=== PATIENT | male | born 2000 | race Caucasian/White ===

== ENCOUNTER 2020-01-16 14:24 | Emergency (ER) | payer OTHER, SELFPAY ==
--- NOTE | 2020-01-16 15:06 | XR_ITS ---
EXAMINATION: XR CHEST CLINICAL INFORMATION: Shortness of breath COMPARISON: None TECHNIQUE: 2 views of the chest were obtained. FINDINGS: No significant abnormality is noted involving the heart, lungs, mediastinum, bony thorax or soft tissues. XR/XR chest 2V IMPRESSION: Unremarkable examination.
[2020-01-16 15:17] VITALS: BP 117/80; PULSE 62; RESP 18; TEMP 37.2; O2SAT 99; BMI 46.9
--- NOTE | 2020-01-16 15:38 | ED_ITS ---
HPI - General Adult General Chief complaint: General Medical Stated complaint: SOB Time Seen by Provider: 01/16/20 15:05 History of Present Illness HPI narrative: Patient complains of shortness of breath over many months which is worse with mild exertion, he does not have any chest pain he does not have any cough no fever he has had no leg pain no swelling, he never feels faint or dizzy, he attributes his mild shortness of breath with exertion 2 years of smoking which he started when he was 9 years old This is been going on for many months and has no recent changes Related Data Allergies Allergy/AdvReac Type Severity Reaction Status Date / Time No Known Allergies Allergy Verified 01/16/20 15:06 Review of Systems Review of Systems: Review of systems is positive for shortness of breath with exertion but not at rest There is no chest pain no nausea no vomiting no pleuritic pain no chest pain at rest no dizziness no feeling of faintness, no fainting no headache no rash no leg pain no calf pain no leg swelling [facility] Past Medical History Attestation statement: The following information was validated with the patient. [facility] Narrative: No medical problems, the patient has been smoking cigarettes since he was 9 years old with a 10 year smoking history Source: nursing notes reviewed Medical History (Updated 01/16/20 @ 16:29 by EILEEN Sullivan) No known health problems Social History Social History Smoking Status: Current every day smoker Smoked in Last 30 Days: No Substance Use Type: Marijuana Advance Directives: No Advance Directives Information Provided: No Physical Exam Vital Signs: Vital Signs: Last Vital Signs Temp 98.9 F 01/16/20 15:17 Pulse 62 01/16/20 15:17 Resp 18 01/16/20 15:17 BP 117/80 01/16/20 15:17 Pulse Ox 99 01/16/20 15:17 Body Mass Index 46.9 Patient is comfortable appearing, no acute distress, breathing easily speaking full sentences relaxed and cooperative Head is normocephalic atraumatic Pharynx clear well-hydrated Neck is supple Min chest is nontender and clear to auscultation bilaterally with full symmetric equal breath sounds Heart no murmurs Abdomen nontender Extremities no edema, no calf tenderness Neuro no focal deficit Course Course Course Narrative: Chest x-ray was normal EKG was sinus bradycardia with a sinus arrhythmia at a rate of 52 CT was 174, normal QRS was 86, normal QT was normal No evidence of any acute ischemic change Perc score was 0 I agreed with patient most likely his many months of shortness of breath with activity is related to smoking and deconditioning, patient was advised to stop smoking, follow with primary care physician and was discharged home Discharge Plan Discharge Clinical Impression: Breath shortness Patient Disposition: Home, Self-Care Additional Instructions: Your EKG and chest x-ray did not show any dangerous condition Your vital signs were normal and her lung sounds were clear as was the rest of her physical exam Try to quit smoking as this can often decreased exercise tolerance Follow with primary doctor Return to ER any time for any worsening shortness of breath, chest pain, fainting, any worse condition or any concerns Interventions: ED Discharge Assessment Last Done: 01/16/20 16:37 Discharge Date/Time: 01/16/20 16:38
--- NOTE | 2020-01-16 15:39 | ECG_ITS ---
Test Reason : SOB Blood Pressure : / mmHG Vent. Rate : 052 BPM Atrial Rate : 052 BPM P-R Int : 174 ms QRS Dur : 086 ms QT Int : 412 ms P-R-T Axes : 061 058 038 degrees QTc Int : 383 ms Sinus bradycardia with marked sinus arrhythmia Early repolarization RSR' or QR pattern in V1 suggests right ventricular conduction delay Otherwise normal ECG No previous ECGs available Referred By: Nabeel Joshi Electronically Signed By:LATOYA MATTA MD
== END 2020-01-16 16:38 | disposition home or self-care (01) ==
PROVIDERS: Emergency Provider Emergency Medicine
DX: R06.02 Shortness of breath (principal); F17.200 Nicotine dependence, unspecified, uncomplicated; Z71.6 Tobacco abuse counseling; F12.90 Cannabis use, unspecified, uncomplicated
CPT/HCPCS: 71046; 93005; 99283; 99284

== ENCOUNTER 2020-07-07 06:31 | Emergency (ER) | payer OTHER, SELFPAY ==
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
[2020-07-07 06:41] VITALS: RESP 24; BMI 20.9
[2020-07-07 06:43] VITALS: BP 120/82; PULSE 90
== END 2020-07-07 07:36 ==
PROVIDERS: Emergency Provider Emergency Medicine
DX: F10.920 Alcohol use, unspecified with intoxication, uncomplicated (principal); Y90.9 Presence of alcohol in blood, level not specified; R45.1 Restlessness and agitation; S51.812A Laceration without foreign body of left forearm, initial encounter; Y35.93XA Legal intervention, means unspecified, suspect injured, initial encounter; Y93.9 Activity, unspecified; Y92.9 Unspecified place or not applicable; Y99.9 Unspecified external cause status; F17.200 Nicotine dependence, unspecified, uncomplicated; F12.90 Cannabis use, unspecified, uncomplicated
CPT/HCPCS: 99282; 99283

== ENCOUNTER 2020-07-07 09:10 | Emergency (ER) | payer OTHER, SELFPAY ==
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
[2020-07-07 09:25] VITALS: BP 133/71; PULSE 78; RESP 18; TEMP 36.6; O2SAT 98; BMI 19.0
--- NOTE | 2020-07-07 09:50 | PC.NURSE ---
pt continues to be verbally abusive and loud, security has not left the bedside, mult attempts to redirect unsuccessful, contacted the father and he will be coming to the ed
[2020-07-07] MEDS: Haloperidol Lactate 5 MG/ML VIAL IM (10:01)
[2020-07-07] MEDS: LORazepam 2 MG/ML VIAL IM (10:03)
[2020-07-07] MEDS: Ketamine HCl 500 MG/5 ML VIAL 100 MG IM (10:27)
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
--- NOTE | 2020-07-07 13:17 | PC.NURSE ---
sr on monitor, nad, skin wpd, resp even and unlabored, has been sleeping for 30 min, woken w light touch and verbal stim, father agreeable top take home, pt calm and cooperative, inst reviewed
== END 2020-07-07 13:21 | disposition home or self-care (01) ==
PROVIDERS: Emergency Provider Emergency Medicine
DX: F14.10 Cocaine abuse, uncomplicated (principal); F11.10 Opioid abuse, uncomplicated; F10.10 Alcohol abuse, uncomplicated; Y90.9 Presence of alcohol in blood, level not specified; R45.1 Restlessness and agitation; Z78.1 Physical restraint status
CPT/HCPCS: 96372; 99283; 99284; 99285; J2060

== ENCOUNTER 2022-03-08 16:51 | Observation (INO) | payer OTHER, SELFPAY ==
--- NOTE | 2022-03-08 | ECG_ITS ---
Test Reason : REPEAT Blood Pressure : / mmHG Vent. Rate : 045 BPM Atrial Rate : 045 BPM P-R Int : 180 ms QRS Dur : 084 ms QT Int : 486 ms P-R-T Axes : 067 062 040 degrees QTc Int : 420 ms Sinus bradycardia Early repolarization Otherwise normal ECG When compared with ECG of 08-MAR-2022 20:27, No significant change was found Referred By: Lilia Johansen Electronically Signed By:ELODIA NATARAJAN
--- NOTE | ~2022-03-08 | XR_ITS ---
EXAMINATION: XR CHEST CLINICAL INFORMATION: Evaluate for edema. Overdose. COMPARISON: 01/16/2020. TECHNIQUE: Frontal view of the chest was obtained. FINDINGS: No significant abnormality is noted involving the heart, lungs, mediastinum, bony thorax or soft tissues. XR/XR chest 1V IMPRESSION: Unremarkable examination.
--- NOTE | 2022-03-08 05:00 | ECG_ITS ---
Test Reason : overdose Blood Pressure : / mmHG Vent. Rate : 039 BPM Atrial Rate : 039 BPM P-R Int : 194 ms QRS Dur : 098 ms QT Int : 530 ms P-R-T Axes : 063 065 047 degrees QTc Int : 426 ms Marked sinus bradycardia with sinus arrhythmia ST elevation, consider early repolarization Abnormal ECG When compared with ECG of 16-JAN-2020 16:11, No significant change was found Referred By: Khurram Delgado Electronically Signed By:ELODIA NATARAJAN
[2022-03-08 17:16] VITALS: PULSE 52; RESP 14; TEMP 37.6; O2SAT 98; BMI 23.6
--- NOTE | 2022-03-08 17:22 | PC.NURSE ---
Patient presents to ED with report of overdose received narcan in the field with good effect no respiratory distress noted, patient is sleepy but is easily aroused neuros intact. Admits to heroin percocent and hydroxyzine use refusing IV will CTM
--- NOTE | 2022-03-08 17:37 | MHC.EDTECH ---
Patient refused to do lab work and covid swab. Stated I would rather just go home .
--- NOTE | 2022-03-08 17:40 | PC.NURSE ---
Patient refusing labs provider aware will CTM
--- NOTE | 2022-03-08 18:09 | PC.NURSE ---
Visitor at bedside easily aroused will CTM
--- NOTE | 2022-03-08 18:29 | ED.OVERDOSE ---
HPI - Overdose General Chief Complaint: Overdose Stated Complaint: Heroin overdoes per EMS Time Seen by Provider: 03/08/22 17:25 Source: patient and EMS Mode of arrival: EMS Limitations: other (Not cooperative) History of Present Illness HPI Narrative: 21-year-old male reports no past medical history presents to the emergency department with an overdose, patient tells me he used heroin, took Percocets and took his prescribed hydroxyzine just prior to arrival. He arrives alert and oriented x4. He received 6 mg of Narcan prior to arrival by EMS. He refused vitals for EMS and was not cooperative. Arrives here, refusing to answer questions, poor historian. Alert and oriented x4 however. Tells us he does not need any of this. Requesting to leave. Not SI not HI. He tells me he just did this ?to get lit . Denies medical complaints. Doesnt want a SUDE. Related Data Previous Rx's Medication Instructions Recorded naloxone 4 mg/actuation nasal 4 mg intranasal Q2M PRN opioid 03/08/22 spray (Narcan) overdose #2 ea Allergies Allergy/AdvReac Type Severity Reaction Status Date / Time No Known Allergies Allergy Verified 01/16/20 15:06 Review of Systems Review of Systems: Constitutional : No Weight loss, No Fever, No Chills, No Fatigue, No Malaise ENT/Mouth : No sore throat, No Rhinorrhea Eyes: No Eye Pain, No Swelling, No Redness Cardiovascular : No Chest Pain, No SOB, No Dyspnea on Exertion, No Orthopnea, No Edema, No Palpitations Respiratory : No Cough, No Sputum, No Wheezing Gastrointestinal : No Nausea, No Vomiting, No Diarrhea, No Constipation, No abdominal Pain, No Hematochezia, No Melena Genitourinary : No Dysuria, No Urinary Frequency, No Hematuria, Musculoskeletal : No joint pain, No Myalgias, No Joint Swelling Skin : No Skin Lesions, No rash Neuro : No Weakness, No Numbness, No Dizziness, No Headache Psych : No Anxiety/Panic, No Depression All other systems reviewed and are negative Yes all other systems are reviewed and are negative [facility] Past Medical History Attestation statement: The following information was validated with the patient. Source: old records reviewed and nursing notes reviewed Medical History Anxiety No known health problems Social History Social History Alcohol intake: current Alcohol intake frequency: a few times a week Substance Use Type: Marijuana Advance Directives: No Advance Directives Information Provided: No Physical Exam Vital Signs: Vital Signs: Last Vital Signs Temp 99.6 F 03/08/22 17:16 Pulse 52 03/08/22 17:16 Resp 14 03/08/22 17:16 BP 106/64 03/08/22 19:12 Pulse Ox 98 03/08/22 17:16 O2 Del Method 03/08/22 17:16 BMI result Body Mass Index 23.6 vss Appearance: Alert.? Oriented X3.? No acute distress.? Head: Normocephalic, atraumatic, no step-offs or deformities Eyes: Pupils equal, round and reactive to light.? ENT: Pharynx normal.? Neck: Normal inspection.? Neck supple.? CVS: Normal heart rate and rhythm.? Pulses normal.? Respiratory: No respiratory distress.? Breath sounds normal.? Abdomen: Soft and nontender.? Skin: Skin warm and dry.? Normal skin color.? Normal skin turgor.? Extremities: No lower extremity edema.? No calf ttp. 5/5 strength to bilateral upper and lower extremities Neuro: Oriented X 3.? No motor deficit.? No sensory deficit. CN 2-12 intact . Ambulating with steady gait normal coordination. Course Reevaluation(s) Reevaluation #1: I did speak to patient and patient now telling me that he had Klonopin 3.5 mg, some synthetic Percocets 2.5 tabs, heroin unknown how much, and 150 mg of Atarax. Denies SI and HI. Poison control was called as patient's heart rate is 37-38, they recommend keeping patient's potassium at 4, magnesium around to the recommend monitoring the patient overnight and keeping him on telemetry. In the would like patient's QTC to be less than 500 prior to discharge. Patient was agreeable to labs laboratory studies pending at this time His heart rate noted to be 34-40s poison control aware. Time: 21:12 Reevaluation #2: Patient continues to have erratic thoughts, poor judgment, making comments that he doesn't care if he dies . Seen by Care team who will section 12 this patient, my attending who recommends a section 12. CBC wnl, chemistry no acute findings requiring intervention, salicylates, acetaminophen and ethanol negative. Covid negative. Time: 22:08 Reevaluation #3: Patients QT @2026 530, QTc 426, I just spoke to poison controll recommends giving mag and K at this time. Also requesting repeat EKG and add CPK Time: 22:51 Additional Reevaluation(s): Patient will be admitted to the hospital for further intervention and treatment. Medications Administered Discontinued Medications Generic Name Dose Route Start Last Admin Trade Name Freq PRN Reason Stop Dose Admin Sodium Chloride 1,000 mls @ 999 mls/hr 03/08/22 20:45 03/08/22 20:37 Ns IV 03/08/22 21:45 999 mls/hr .Q1H1M YASHIRA Administration Medical Decision Making Medical Decision Making [facility] Narrative: 1724 21-year-old male presents with accidental overdose took heroin, Percocet and hydroxyzine just prior to arrival. Alert and oriented x4, vague/poor historian, uncooperative with history taking. Was given Narcan prior to arrival. Denies SI and HI. No reported trauma. Physical exam benign. Neuro nonfocal. Plan at this time medical clearance, patient refusing substance use disorder evaluation Differential Diagnosis Differential Diagnoses: The differential diagnosis associated with the presentation includes Likely accidental overdose. Unlikely intentional overdose, suicide attempt. Admission/Observation Consideration of admission/observation: Escalation of care including admission/observation considered Not indicated Lab Data Result Diagrams: 03/08/22 20:16 03/08/22 20:16 Labs: Lab Results 03/08/22 03/08/22 03/08/22 Range/Units 20:16 20:16 20:16 WBC 6.2 (4.8-10.8) X10*3/uL RBC 5.14 (4.60-5.80) X10*6/uL Hgb 14.4 (14.0-18.0) g/dl Hct 41.1 L (42.0-52.0) % MCV 80.0 (80.0-98.0) fL MCH 28.0 (27.0-33.0) pg MCHC 35.0 (31.0-36.0) g/dl RDW 12.0 (11.0-16.0) % Plt Count 264 (160-400) X10*3/uL MPV 9.3 L (9.4-12.4) fL Immature Gran % (Auto) 0.2 (0.0-0.4) % Neut % (Auto) 57.1 (45-73) % Lymph % (Auto) 25.5 (20-40) % [place] % (Auto) 4.2 (2-11) % Eos % (Auto) 12.0 H (0-4) % Baso % (Auto) 1.0 (0-2) % Lymph # (Auto) 1.6 (1.2-4.9) X10*3/uL [place] # (Auto) 0.3 (0.1-1.2) X10*3/uL Eos # (Auto) 0.7 H (0.0-0.4) X10*3/uL Baso # (Auto) 0.1 (0.0-0.2) X10*3/uL Abs Immat Gran (auto) 0.01 (0.00-0.03) X10*3/uL Absolute Neuts (auto) 3.5 (2.0-8.3) x10*3/uL Absolute Nucleated RBC 0.000 (0.0-0.012) X10*3/uL Nucleated RBC % (auto) 0.0 (0.0-0.2) /100WBC Sodium 140 (135-145) mmol/L Potassium 3.7 (3.3-5.1) mmol/L Chloride 105 (96-108) mmol/L Carbon Dioxide 30 H (22-29) mmol/L Anion Gap 9 L (12-20) BUN 11 (9-16) mg/dL Creatinine 0.92 (0.5-1.4) mg/dL Estim Creat Clear Calc 125.9 Estimated GFR > 60 Random Glucose 102 (60-115) mg/dL Calcium 9.9 (8.4-10.2) mg/dL Magnesium 2.0 (1.6-2.6) mg/dL Total Bilirubin 1.9 H (0.0-1.0) mg/dL AST 58 H (5-37) U/L ALT 68 H (0-40) U/L Alkaline Phosphatase 75 (39-117) U/L Total Protein 6.9 (6.5-8.0) g/dL Albumin 4.3 (3.5-5.0) g/dL Salicylates < 5.0 L (15-30) mg/dL Acetaminophen < 1 (<30) mcg/mL Ethyl Alcohol < 10 mg/dL COVID-19 ([facility]IG[facility]ALIA) Negative (Negative) COVID-19 Clin Com See Note Independent Interpretation I performed an independent interpretation of an: Plain X-Ray (WNL) Radiology Impression Discussion of test interpretation with radiology: I have reviewed the radiologist's reading. Independent Historian Clinical information obtained from an independent historian. History obtained from or confirmed by: Other (self) Core Measures AMI core measures followed: Yes Measure exclusions: not indicated Critical Care Time Critical Care Time Critical Care Time: Yes Total Critical Care Time: 45 Attestation: I attest to this time spent taking care of the patient, obtaining history, physical, reviewing labs, imaging, speaking to my attending, speaking to specialist. Discharge Plan Discharge Clinical Impression: Drug overdose, Bradycardia Patient Disposition: Admitted As Inpatient
--- NOTE | 2022-03-08 18:56 | HO.SUDE ---
Lizzie seen Rylie for a SUDE after an overdose on heroin. During SUDE Rylie reported that he was using in his family home shortly after using was speaking to step mother who noted the signs of overdose and issued narcan. He reported that overdose was not intentional. He denied current or past SI. He reported having a history of detox admissions, last one being a year ago. When using he reported sometimes using alone or with others. Harm reduction was discussed and Rylie was encouraged that if using he should use with someone sober present to prevent overdose. Lizzie discussed use of Fentanyl test strips, he reported having them. Lizzie discussed possible resources. 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 Recovery Unit Operator connected with him for resources. Care team made therapy referral.
--- NOTE | 2022-03-08 19:08 | MHC.RECOVSUP ---
? Reason for consult Recovery Support o Current location: ED[facility] o Identified substance use concern: Heroin - Overdose - Support ? Intervention: o Community resources provided o Harm reduction discussion ? Plan: o Patient awaiting crisis evaluation o Patient to follow up with [facility] after discharge ? Additional information: Met with Patient and we talk about recovery... Patient stated that would like a Pipe Layer...( A referral was made..)
--- NOTE | 2022-03-08 19:08 | PC.NURSE ---
Addendum entered by Iris Pepper RN 03/09/22 06:53: report given to GEN Novak Addendum entered by Irsi Pepper RN 03/09/22 02:58: pt notice to be hypotensive, systolic in the 80's, RR 10. will administered narckirti, DR. Danny lucas, verbal order for NS 1000ml Addendum entered by Iris Pepper RN 03/09/22 02:48: poison controlled update on plan of care Addendum entered by Iris Pepper RN 03/08/22 21:51: poison controlled update on pt labs Addendum entered by Iris Pepper RN 03/08/22 21:07: pt controlled called, per recommendation they want K at 4, Mag at 2, QTC less than 500. pt to be watch overnight with tele monitoring Addendum entered by Iris Pepper RN 03/08/22 20:48: pt report that he took 150mg of hydroxyzine, 2.5 pills of fake percocet, and 3.5mg of klonopin. EILEEN dobbs aware Addendum entered by Iris Pepper RN 03/08/22 20:30: pt is alert and oriented pt notice to be in the monitor with a HR of 36, pt switched to bed 13 for monitoring, IV inserted, blood obtained. EILEEN Martinez notified of pt conditions. verbal order for NS 1L give Original Note: report received from GEN Magaña
[2022-03-08 19:12] VITALS: BP 106/64
[2022-03-08 20:28] LABS: MANUAL DIFF FLAG NO
[2022-03-08 20:29] LABS: Basophils Absolute Auto 0.1 X10*3/uL (0.0-0.2); Eosinophils Absolute Auto 0.7 X10*3/uL (0.0-0.4); Hematocrit 41.1 % (42.0-52.0); Hemoglobin 14.4 g/dl (14.0-18.0); Imm Gran Abs Auto 0.01 X10*3/uL (0.00-0.03); Imm Gran Pct Auto 0.2 % (0.0-0.4); Lymphocytes Absolute Auto 1.6 X10*3/uL (1.2-4.9); Lymphocytes Percent Auto 25.5 % (20-40); Mean Platelet Volume 9.3 fL (9.4-12.4); Monocytes Absolute Auto 0.3 X10*3/uL (0.1-1.2); Monocytes Percent Auto 4.2 % (2-11); Neutrophils Absolute Auto 3.5 x10*3/uL (2.0-8.3); Neutrophils Percent Auto 57.1 % (45-73); Platelet Count 264 X10*3/uL (160-400); Red Blood Count 5.14 X10*6/uL (4.60-5.80); White Blood Count 6.2 X10*3/uL (4.8-10.8)
[2022-03-08] MEDS: 0.9 % Sodium Chloride 1,000 ML 999 ML IV (20:37)
[2022-03-08 20:44] LABS: IDNOW Serial# 16C4AD1C
[2022-03-08 20:45] LABS: COVID-19 Test Negative (Negative)
[2022-03-08 21:16] LABS: Alanine Aminotransferase 68 U/L (0-40); Albumin Level 4.3 g/dL (3.5-5.0); Alkaline Phosphatase 75 U/L (39-117); Anion Gap 9 (12-20); Aspartate Amino Transferase 58 U/L (5-37); Bilirubin Total 1.9 mg/dL (0.0-1.0); Blood Urea Nitrogen 11 mg/dL (9-16); Calcium 9.9 mg/dL (8.4-10.2); Carbon Dioxide 30 mmol/L (22-29); Chloride 105 mmol/L (96-108); Creatinine Clr Calc Pharmacy 125.9; Estimated Glomerular Filt Rate > 60; Ethanol < 10 mg/dL; Glucose Random 102 mg/dL (60-115); Potassium 3.7 mmol/L (3.3-5.1); Salicylate < 5.0 mg/dL (15-30); Sodium 140 mmol/L (135-145); Total Protein 6.9 g/dL (6.5-8.0)
[2022-03-08 21:49] LABS: Acetaminophen LAB < 1 mcg/mL (<30)
--- NOTE | 2022-03-08 22:09 | MHC.CARE ---
Once pt is medically cleared, a consult should put in for crisis due to overdose with unclear intent.
--- NOTE | 2022-03-08 22:17 | MHC.CARE ---
CARE Team provides intervention to pt and family. CARE Team gives information to family about section 35. Pt is ambivalent about reaming in the ED for treatment. Judgment, insight and impulse control severely impaired. Pt was brought to the ED second to overdose with unclear intent. Current risk and mental status cannot be assessed appropriately at this time as pt is not medically cleared. Pt is irritable, irrational and inconsistent in presentation and would benefit from an assessment of risk once medically stable.
[2022-03-08] MEDS: Potassium Chloride ER 20 MEQ TAB.ER.PRT 40 MEQ PO (23:05)
[2022-03-08] MEDS: Magnesium Sulfate/H2O 2 GM/50 ML PIGGYBACK IV (23:06)
[2022-03-08 23:08] VITALS: BP 113/72; PULSE 42; RESP 14; O2SAT 96
[2022-03-08 23:08] LABS: MANUAL DIFF FLAG NO
[2022-03-08 23:09] LABS: Basophils Absolute Auto 0.1 X10*3/uL (0.0-0.2); Basophils Percent Auto 0.9 % (0-2); Eosinophils Absolute Auto 0.7 X10*3/uL (0.0-0.4); Eosinophils Percent Auto 11.7 % (0-4); Hematocrit 37.3 % (42.0-52.0); Hemoglobin 13.2 g/dl (14.0-18.0); Imm Gran Abs Auto 0.01 X10*3/uL (0.00-0.03); Imm Gran Pct Auto 0.2 % (0.0-0.4); Lymphocytes Absolute Auto 1.9 X10*3/uL (1.2-4.9); Mean Corpuscular HGB Conc 35.4 g/dl (31.0-36.0); Mean Corpuscular Hemoglobin 28.3 pg (27.0-33.0); Mean Platelet Volume 9.3 fL (9.4-12.4); Monocytes Absolute Auto 0.3 X10*3/uL (0.1-1.2); Monocytes Percent Auto 5.3 % (2-11); Neutrophils Absolute Auto 2.9 x10*3/uL (2.0-8.3); Neutrophils Percent Auto 48.9 % (45-73); Platelet Count 257 X10*3/uL (160-400); Red Blood Count 4.66 X10*6/uL (4.60-5.80); Red Cell Distribution Width 11.9 % (11.0-16.0); White Blood Count 5.9 X10*3/uL (4.8-10.8)
[2022-03-08 23:34] LABS: Acetaminophen LAB < 1 mcg/mL (<30); Alanine Aminotransferase 60 U/L (0-40); Albumin Level 3.9 g/dL (3.5-5.0); Alkaline Phosphatase 63 U/L (39-117); Anion Gap 11 (12-20); Aspartate Amino Transferase 47 U/L (5-37); Bilirubin Total 1.9 mg/dL (0.0-1.0); Blood Urea Nitrogen 10 mg/dL (9-16); Calcium 9.2 mg/dL (8.4-10.2); Carbon Dioxide 26 mmol/L (22-29); Chloride 108 mmol/L (96-108); Creatinine Clr Calc Pharmacy 137.9; Estimated Glomerular Filt Rate > 60; Glucose Random 99 mg/dL (60-115); Potassium 3.8 mmol/L (3.3-5.1); Salicylate < 5.0 mg/dL (15-30); Sodium 141 mmol/L (135-145); Total Protein 6.1 g/dL (6.5-8.0)
--- NOTE | 2022-03-08 23:46 | P.HPHOSP_ITS ---
History of Present Illness Date of Service: 03/08/22 Chief Complaint: Altered mental status This is a 21-year-old male with pertinent history of anxiety disorder presents to the emergency department after overdose. As per EMS, he was unresponsive and bradycardic and mentation improved after 6 mg of Narcan. At the time of my evaluation, patient states he used synthetic Percocets, hydroxyzine, Klonopin while he was with his friends. Denied any suicidal or homicidal ideations. No pain or trauma. He used drugs to get high . Patient states that he felt like he was dying and the next thing he was in the ER. Initially he was not cooperative in the ER and was refusing to answer questions. Poison Control was contacted from the ER who recommended maintaining patient's potassium at 4, maintaining magnesium around the normal level and monitoring overnight with property assessment monitor. Review of Systems Constitutional: Constitutional: Reports no additional constitutional complaints Cardiovascular: Cardiovascular: Reports no additional cardiovascular compl aints Respiratory: Respiratory: Reports no additional respiratory complaints Gastrointestinal: Gastrointestinal: Reports no additional gastrointestinal complaints Genitourinary: Genitourinary: Reports no additional male genitourinary comp laints [facility] Medical History Anxiety No known health problems Functional capacity: independent ambulation Pertinent family history: Mother with history of anxiety Social History Alcohol intake: current Alcohol intake frequency: a few times a week Substance Use Type: Marijuana Advance Directives: No Advance Directives Information Provided: No Meds Allergies Allergy/AdvReac Type Severity Reaction Status Date / Time No Known Allergies Allergy Verified 01/16/20 15:06 Active Medications: Current Medications Magnesium Sulfate (Magnesium Sulfate/H2o) 2 gm in 50 mls @ 25 mls/hr IV ONCE ONE Stop: 03/09/22 00:45 Last Admin: 03/08/22 23:06 Dose: 25 mls/hr Pharmacy Consult (Consult Rx Perform Med Rec) 1 each MISCELLANE ONCE PRN PRN Reason: Consult order Sodium Chloride (0.9 % Sodium Chloride Flush 3 Ml Syringe) 3 ml IVFLUSH QSHIFT YASHIRA Physical Exam Vital Signs and Narrative: Vital Signs: Last Vital Signs Temp 99.6 F 03/08/22 17:16 Pulse 42 L 01/03/23 23:08 Resp 14 03/08/22 23:08 BP 113/72 03/08/22 23:08 Pulse Ox 96 03/08/22 23:08 O2 Del Method 03/08/22 23:08 BMI result Body Mass Index 23.6 Young male lying in bed in no distress Neck supple, no JVD Bradycardic and regular rhythm, S1-S2 heard Regular breath sounds bilaterally, no wheezing or crackles appreciated Abdomen soft nontender, no guarding, no rigidity Patient is awake, alert and oriented to self, place, time and person ; no focal motor deficit Psych: Normal mood No pedal edema Results Labs CBC and Chem 7: 03/08/22 23:03 03/08/22 23:03 Labs: Laboratory Results - last 24 hr 03/08/22 03/08/22 03/08/22 20:16 20:16 20:16 MCV 80.0 MCH 28.0 MCHC 35.0 RDW 12.0 Plt Count 264 MPV 9.3 L Immature Gran % (Auto) 0.2 Neut % (Auto) 57.1 Lymph % (Auto) 25.5 [place] % (Auto) 4.2 Eos % (Auto) 12.0 H Baso % (Auto) 1.0 Lymph # (Auto) 1.6 [place] # (Auto) 0.3 Eos # (Auto) 0.7 H Baso # (Auto) 0.1 Abs Immat Gran (auto) 0.01 Absolute Neuts (auto) 3.5 Absolute Nucleated RBC 0.000 Nucleated RBC % (auto) 0.0 Anion Gap 9 L Estim Creat Clear Calc 125.9 Estimated GFR > 60 Random Glucose 102 Calcium 9.9 Magnesium 2.0 Total Bilirubin 1.9 H AST 58 H ALT 68 H Alkaline Phosphatase 75 Total Creatine Kinase Total Protein 6.9 Albumin 4.3 Salicylates < 5.0 L Acetaminophen < 1 Ethyl Alcohol < 10 COVID-19 (MIGDALIA) Negative COVID-19 Clin Com See Note 03/08/22 03/08/22 23:03 23:03 MCV 80.0 MCH 28.3 MCHC 35.4 RDW 11.9 Plt Count 257 MPV 9.3 L Immature Gran % (Auto) 0.2 Neut % (Auto) 48.9 Lymph % (Auto) 33.0 [place] % (Auto) 5.3 Eos % (Auto) 11.7 H Baso % (Auto) 0.9 Lymph # (Auto) 1.9 [place] # (Auto) 0.3 Eos # (Auto) 0.7 H Baso # (Auto) 0.1 Abs Immat Gran (auto) 0.01 Absolute Neuts (auto) 2.9 Absolute Nucleated RBC 0.000 Nucleated RBC % (auto) 0.0 Anion Gap 11 L Estim Creat Clear Calc 137.9 Estimated GFR > 60 Random Glucose 99 Calcium 9.2 D Magnesium Total Bilirubin 1.9 H AST 47 H ALT 60 H Alkaline Phosphatase 63 Total Creatine Kinase 86 Total Protein 6.1 L Albumin 3.9 Salicylates < 5.0 L Acetaminophen < 1 Ethyl Alcohol COVID-19 (MIGDALIA) COVID-19 Clin Com Imaging Radiologist's Impressions: Impressions Chest X-Ray 03/08/22 18:33 IMPRESSION: Unremarkable examination. Assessment and Plan (1) Drug overdose: Status: Acute (2) Bradycardia: Status: Acute Plan This is a 21-year-old male with pertinent history of anxiety disorder presents to the emergency department after overdose. #. Acute toxic encephalopathy due to accidental overdose: Mentation improved after Narcan. Consulted CARE team and Addiction Team. #. Bradycardia in the setting of overdose: Poison control was contacted who recommended maintaining potassium above 4 and magnesium within normal limits. Patient given p.o. potassium and IV magnesiumn in the ER. Will monitor overnight on property assessment monitor. Repeat EKG in am to monitor QTC. (QTC <500 before discharge as per poison control). Repeat electrolytes in a.m. #. Generalized anxiety disorder: Patient states he takes hydroxyzine and Klonopin. Consulting psych for medication optimization DVT prophylaxis: None. Patient is ambulatory Full code Diet: Regular diet Time Spent With Patient Time: Total time managing care of this patient today ____ minutes. Quality Stroke Does the patient have a stroke diagnosis?: No VTE Prior VTE?: No VTE Risk Level:: Medical - low VTE Device Contraindication: Treatment Not Indicated VTE Drug Contraindication: Treatment Not Indicated
[2022-03-09] VITALS (8 sets, daily range): BP systolic 83–118; BP diastolic 50–75; PULSE 38–62; RESP 8–16; TEMP 36.1; O2SAT 96–100
--- NOTE | 2022-03-09 | ECG_ITS ---
Test Reason : REPEAT Blood Pressure : / mmHG Vent. Rate : 035 BPM Atrial Rate : 035 BPM P-R Int : 188 ms QRS Dur : 086 ms QT Int : 522 ms P-R-T Axes : 064 059 032 degrees QTc Int : 398 ms Marked sinus bradycardia Early repolarization Abnormal ECG When compared with ECG of 08-MAR-2022 22:52, Decrease in ventricular rate Referred By: Khurram Delgado Electronically Signed By:ELODIA NATARAJAN
[2022-03-09 00:32] LABS: INTERNATIONAL NORM RATIO 1.1 (0.9-1.1)
[2022-03-09] MEDS: Naloxone HCl Nasal 4 MG SPRAY NOSTRILALT (03:02)
[2022-03-09] MEDS: 0.9 % Sodium Chloride 250 ML 999 ML IV (03:03)
[2022-03-09 06:49] LABS: MANUAL DIFF FLAG NO
[2022-03-09 06:55] LABS: Basophils Percent Auto 0.8 % (0-2); Eosinophils Absolute Auto 0.7 X10*3/uL (0.0-0.4); Eosinophils Percent Auto 13.7 % (0-4); Hematocrit 36.2 % (42.0-52.0); Hemoglobin 12.6 g/dl (14.0-18.0); Imm Gran Abs Auto 0.01 X10*3/uL (0.00-0.03); Imm Gran Pct Auto 0.2 % (0.0-0.4); Lymphocytes Absolute Auto 1.5 X10*3/uL (1.2-4.9); Lymphocytes Percent Auto 27.9 % (20-40); Mean Corpuscular HGB Conc 34.8 g/dl (31.0-36.0); Mean Corpuscular Hemoglobin 28.7 pg (27.0-33.0); Mean Corpuscular Volume 82.5 fL (80.0-98.0); Mean Platelet Volume 9.8 fL (9.4-12.4); Monocytes Absolute Auto 0.4 X10*3/uL (0.1-1.2); Monocytes Percent Auto 7.8 % (2-11); Neutrophils Absolute Auto 2.6 x10*3/uL (2.0-8.3); Neutrophils Percent Auto 49.6 % (45-73); Platelet Count 251 X10*3/uL (160-400); Red Blood Count 4.39 X10*6/uL (4.60-5.80); White Blood Count 5.3 X10*3/uL (4.8-10.8)
[2022-03-09 07:30] LABS: Alanine Aminotransferase 50 U/L (0-40); Albumin Level 3.6 g/dL (3.5-5.0); Alkaline Phosphatase 64 U/L (39-117); Anion Gap 7 (12-20); Aspartate Amino Transferase 33 U/L (5-37); Bilirubin Direct 0.5 mg/dL (0.0-0.5); Bilirubin Total 1.5 mg/dL (0.0-1.0); Blood Urea Nitrogen 10 mg/dL (9-16); Calcium 8.5 mg/dL (8.4-10.2); Carbon Dioxide 28 mmol/L (22-29); Chloride 107 mmol/L (96-108); Creatinine Clr Calc Pharmacy 139.6; Estimated Glomerular Filt Rate > 60; Glucose Random 110 mg/dL (60-115); Potassium 4.3 mmol/L (3.3-5.1); Sodium 138 mmol/L (135-145); Total Protein 5.6 g/dL (6.5-8.0)
[2022-03-09 07:34] LABS: Appearance Urine Clear; Color Urine Yellow; Glucose Urine UA Negative (Negative); Leukocyte Esterase Urine Negative (Negative); Nitrite Urine Negative (Negative); Specific Gravity - Urine 1.015 (1.005-1.025); Urine Blood Negative (Negative); Urine Ketones Negative (Negative); Urine Protein Negative (Neg-Trace)
[2022-03-09 07:48] LABS: Acetaminophen LAB < 1 mcg/mL (<30)
[2022-03-09 07:49] LABS: Amphetamine Screen Urine Not Detected (Not Detect); Barbiturates, Urine Not Detected (Not Detect); Benzodiazepines Screen Urine Not Detected (Not Detect); Cannabinoid Screen Urine POSITIVE (Not Detect); Cocaine Screen Urine POSITIVE (Not Detect); Fentanyl, urine POSITIVE (Not Detect); Opiate Screen Urine POSITIVE (Not Detect); Phencyclidine Screen Urine Not Detected (Not Detect)
[2022-03-09] MEDS: 0.9 % Sodium Chloride Flush 3 ML SYRINGE IVFLUSH (08:12)
--- NOTE | 2022-03-09 08:15 | PC.NURSE ---
patient alert, oriented x4. denies CP or SOB. Sinus Maykel on the monitor. able to make needs known. bed in lowest locked position for safety
--- NOTE | 2022-03-09 08:35 | PHA.MEDREC ---
Pharmacy Consult ? Medication Reconciliation Pharmacy has completed the medication reconciliation. Pt states he takes clonazepam 1mg BID and hydroxyzine 50mg BID; asked pt where he gets his scripts and he said [facility], nothing in claim history or PDMP. Dr. Charles lucas.
--- NOTE | 2022-03-09 11:45 | P.DS_ITS ---
DS: Providers Provider Date of Service: 03/09/22 Date of admission: 03/08/22 23:17 Primary care physician: None Physician Consults: 03/08/22 23:58 Addiction Medicine Routine Consulting Provider: Addiction Covering Reason for consultation: overdose Consult to Care Team Stat Comment: Reason for consultation: overdose 03/08/22 23:59 Consult to Psychiatry Routine Consulting Provider: Psych Covering Reason for consultation: anxiety DS: Diagnosis Discharge Diagnosis (1) Drug overdose: Status: Acute (2) Bradycardia: Status: Acute DS: Summary Hospital Course Hospital Course: from initial hpi: Chief Complaint: Altered mental status This is a 21-year-old male with pertinent history of anxiety disorder presents to the emergency department after overdose.? As per EMS, he was unresponsive and bradycardic and mentation improved after 6 mg of Narcan.? At the time of my evaluation, patient states he used synthetic Percocets, hydroxyzine, Klonopin wh ile he was with his friends.? Denied any suicidal or homicidal ideations.? No pain or trauma. He used drugs to get high . Patient states that he felt like he was dying and the next thing he was in the ER.? Initially he was not cooperative in the ER and was refusing to answer questions.? Poison Control was contacted from the ER who recommended maintaining patient's potassium at 4, maintaining magnesium around the normal level and monitoring overnight with granite polisher apprentice. hospital course: Patient was admitted for acute toxic encephalopathy due to accidental overdose on benzodiazepines and hydroxyzine and opiates. He had some bradycardia which has resolved. Mental status returned to baseline. Patient states that his overdose was due to trying to get high and not due to any intention of self- harm. Patient is feeling better he has been educated on safe medication use and will be discharged home. Time Spent with Patient Time attestation: Total time managing care of this patient today ____ minutes. Discharge coordination time: Greater than 30 minutes Quality: Safe Use of Opioids Does Pt have an Active Cancer Diagnosis on the Problem List?: No Quality: Stroke Does the patient have a stroke diagnosis?: No Physical Exam Vital Signs: Vital Signs: Last Vital Signs Temp 97 F 03/09/22 05:25 Pulse 41 L 03/09/22 08:42 Resp 16 03/09/22 07:33 BP 98/51 L 03/09/22 07:33 Pulse Ox 97 03/09/22 07:33 O2 Del Method 03/09/22 07:33 BMI result Body Mass Index 23.6 General: AO X 3, no acute distress Resp: CTA bilateral, no accessory muscles used CVS: S1,S2,RRR GI: soft, non tender, non distended Neuro: motor grossly intact, alert Psych: appropriate affect, appropriate insight DS: Data Data Completed and Pending Labs on day of discharge: Laboratory Results - last 24 hr 03/08/22 03/08/22 03/08/22 20:16 20:16 20:16 WBC 6.2 RBC 5.14 Hgb 14.4 Hct 41.1 L MCV 80.0 MCH 28.0 MCHC 35.0 RDW 12.0 Plt Count 264 MPV 9.3 L Immature Gran % (Auto) 0.2 Neut % (Auto) 57.1 Lymph % (Auto) 25.5 [place] % (Auto) 4.2 Eos % (Auto) 12.0 H Baso % (Auto) 1.0 Lymph # (Auto) 1.6 [place] # (Auto) 0.3 Eos # (Auto) 0.7 H Baso # (Auto) 0.1 Abs Immat Gran (auto) 0.01 Absolute Neuts (auto) 3.5 Absolute Nucleated RBC 0.000 Nucleated RBC % (auto) 0.0 PT INR Sodium 140 Potassium 3.7 Chloride 105 Carbon Dioxide 30 H Anion Gap 9 L BUN 11 Creatinine 0.92 Estim Creat Clear Calc 125.9 Estimated GFR > 60 Random Glucose 102 Calcium 9.9 Magnesium 2.0 Total Bilirubin 1.9 H Direct Bilirubin AST 58 H ALT 68 H Alkaline Phosphatase 75 Total Creatine Kinase Total Protein 6.9 Albumin 4.3 Urine Color Urine Appearance Urine pH Ur Specific [place] Urine Protein Urine Glucose (UA) Urine Ketones Urine Blood Urine Nitrite Ur Leukocyte Esterase Salicylates < 5.0 L Urine Opiates Screen Urine Fentanyl Screen Acetaminophen < 1 Ur Barbiturates Screen Ur Phencyclidine Scrn Ur Amphetamines Screen U Benzodiazepines Scrn Urine Cocaine Screen U Marijuana (THC) Screen Ethyl Alcohol < 10 COVID-19 (MIGDALIA) Negative COVID-19 Clin Com See Note 03/08/22 03/08/22 03/09/22 23:03 23:03 00:02 WBC 5.9 RBC 4.66 Hgb 13.2 L Hct 37.3 L MCV 80.0 MCH 28.3 MCHC 35.4 RDW 11.9 Plt Count 257 MPV 9.3 L Immature Gran % (Auto) 0.2 Neut % (Auto) 48.9 Lymph % (Auto) 33.0 [place] % (Auto) 5.3 Eos % (Auto) 11.7 H Baso % (Auto) 0.9 Lymph # (Auto) 1.9 [place] # (Auto) 0.3 Eos # (Auto) 0.7 H Baso # (Auto) 0.1 Abs Immat Gran (auto) 0.01 Absolute Neuts (auto) 2.9 Absolute Nucleated RBC 0.000 Nucleated RBC % (auto) 0.0 PT 13.0 INR 1.1 Sodium 141 Potassium 3.8 Chloride 108 Carbon Dioxide 26 Anion Gap 11 L BUN 10 Creatinine 0.84 Estim Creat Clear Calc 137.9 Estimated GFR > 60 Random Glucose 99 Calcium 9.2 D Magnesium Total Bilirubin 1.9 H Direct Bilirubin AST 47 H ALT 60 H Alkaline Phosphatase 63 Total Creatine Kinase 86 Total Protein 6.1 L Albumin 3.9 Urine Color Urine Appearance Urine pH Ur Specific [place] Urine Protein Urine Glucose (UA) Urine Ketones Urine Blood Urine Nitrite Ur Leukocyte Esterase Salicylates < 5.0 L Urine Opiates Screen Urine Fentanyl Screen Acetaminophen < 1 Ur Barbiturates Screen Ur Phencyclidine Scrn Ur Amphetamines Screen U Benzodiazepines Scrn Urine Cocaine Screen U Marijuana (THC) Screen Ethyl Alcohol COVID-19 (MIGDALIA) COVID-19 Clin Com 03/09/22 03/09/22 03/09/22 06:29 06:29 07:19 WBC 5.3 RBC 4.39 L Hgb 12.6 L Hct 36.2 L MCV 82.5 MCH 28.7 MCHC 34.8 RDW 12.0 Plt Count 251 MPV 9.8 Immature Gran % (Auto) 0.2 Neut % (Auto) 49.6 Lymph % (Auto) 27.9 [place] % (Auto) 7.8 Eos % (Auto) 13.7 H Baso % (Auto) 0.8 Lymph # (Auto) 1.5 [place] # (Auto) 0.4 Eos # (Auto) 0.7 H Baso # (Auto) 0.0 Abs Immat Gran (auto) 0.01 Absolute Neuts (auto) 2.6 Absolute Nucleated RBC 0.000 Nucleated RBC % (auto) 0.0 PT INR Sodium 138 Potassium 4.3 Chloride 107 Carbon Dioxide 28 Anion Gap 7 L BUN 10 Creatinine 0.83 Estim Creat Clear Calc 139.6 Estimated GFR > 60 Random Glucose 110 Calcium 8.5 D Magnesium 2.0 Total Bilirubin 1.5 H Direct Bilirubin 0.5 AST 33 ALT 50 H Alkaline Phosphatase 64 Total Creatine Kinase Total Protein 5.6 L Albumin 3.6 Urine Color Yellow Urine Appearance Clear Urine pH 6.0 Ur Specific [place] 1.015 Urine Protein Negative Urine Glucose (UA) Negative Urine Ketones Negative Urine Blood Negative Urine Nitrite Negative Ur Leukocyte Esterase Negative Salicylates Urine Opiates Screen Urine Fentanyl Screen Acetaminophen < 1 Ur Barbiturates Screen Ur Phencyclidine Scrn Ur Amphetamines Screen U Benzodiazepines Scrn Urine Cocaine Screen U Marijuana (THC) Screen Ethyl Alcohol COVID-19 (MIGDALIA) [employer] 03/09/22 07:19 WBC RBC Hgb Hct MCV MCH MCHC RDW Plt Count MPV Immature Gran % (Auto) Neut % (Auto) Lymph % (Auto) [place] % (Auto) Eos % (Auto) Baso % (Auto) Lymph # (Auto) [place] # (Auto) Eos # (Auto) Baso # (Auto) Abs Immat Gran (auto) Absolute Neuts (auto) Absolute Nucleated RBC Nucleated RBC % (auto) PT INR Sodium Potassium Chloride Carbon Dioxide Anion Gap BUN Creatinine Estim Creat Clear Calc Estimated GFR Random Glucose Calcium Magnesium Total Bilirubin Direct Bilirubin AST ALT Alkaline Phosphatase Total Creatine Kinase Total Protein Albumin Urine Color Urine Appearance Urine pH Ur Specific [place] Urine Protein Urine Glucose (UA) Urine Ketones Urine Blood Urine Nitrite Ur Leukocyte Esterase Salicylates Urine Opiates Screen POSITIVE H Urine Fentanyl Screen POSITIVE H Acetaminophen Ur Barbiturates Screen Not Detected Ur Phencyclidine Scrn Not Detected Ur Amphetamines Screen Not Detected U Benzodiazepines Scrn Not Detected Urine Cocaine Screen POSITIVE H U Marijuana (THC) Screen POSITIVE H Ethyl Alcohol COVID-19 (MIGDALIA) COVID-[employer] Discharge Plan Discharge Anticipated Discharge Date/Time: 03/09/22 11:44 Patient Disposition: Home, Self-Care Discharge Diagnosis: drug overdose, accidental Referrals: [facility] [Provider Group] - 1 day Physician,None [Primary Care Provider] - 2 days Discharge Medications: New naloxone [Narcan] 4 mg/actuation spray,non-aerosol 4 mg intranasal Q2M PRN (Reason: opioid overdose) Qty: 2 0RF Rx Instructions: spray 1 dose into ONE nostril; alternate nostrils w each dose until help arrives Continued clonazepam [Klonopin] 1 mg Tablet 1 mg PO BID Discontinued hydroxyzine HCl 50 mg Tablet 50 mg PO BID Discharge Orders: Discharge Order (Routine); Ordered 03/09/22 Ordered By: Saturnino Soto Diet: Advance to usual diet Activity on Discharge: As tolerated Stand Alone Forms: Patient Portal Discharge page, Work/School Release Care Plan Goals: recovery Health Concerns: overdose Plan of Treatment: avoid overdose Assessment: see above Patient Instructions: Adult Overdose (ED)
--- NOTE | 2022-03-09 12:30 | MHC.CM.PN ---
Patient discharged home before being seen by case management.
--- NOTE | 2022-03-09 12:34 | MHC.RECOVRN ---
Met with pt in ED13 to follow up after overdose. Pt reports using fentanyl pressed pills, 1-2 IN, on the weekends. Pt reports having used them daily in the past, ~2020, and going to [place] for 8 months at that time to stay with his mother and be in a different environment. Pt reports that when he returned to [place] he began using after 5 or 6 months and frequency has increased over time. Pt foresees use continuing to increase. Discussed possibility of Suboxone, pt provided information re [facility]. Pt has experienced precipitated withdrawal in the past, pt educated regarding different induction methods. Pt also reports taking clonazepam, 1 mg BID. Pt reports taking more than prescribed yesterday which could have also led to overdose. Discussed risks with pressed pills/fentanyl as well as harm reduction. Pt denies questions or concerns and is requesting to discharge. Provided with t/w contact information if needed.
== END 2022-03-09 12:22 | disposition home or self-care (01) ==
LOC: HO.ED 22:50 → HO.EDOVER 23:40
PROVIDERS: Physician Assistant; Admitting Provider Student in an Organized Health Care Education/Training Program; Emergency Provider Internal Medicine; Visit Provider Internal Medicine
DX: G92.8 Other toxic encephalopathy (principal); T40.1X1A Poisoning by heroin, accidental (unintentional), initial encounter; T40.2X1A Poisoning by other opioids, accidental (unintentional), initial encounter; T43.591A Poisoning by other antipsychotics and neuroleptics, accidental (unintentional), initial encounter; R00.1 Bradycardia, unspecified; F41.9 Anxiety disorder, unspecified; Y92.9 Unspecified place or not applicable; Z20.822 Contact with and (suspected) exposure to COVID-19
CPT/HCPCS: 36415; 71045; 80053; 80143; 80179; 80307; 81003; 82077; 82248; 82550; 83735; 85025; 85610; 87635; 93005; 96361; 96365; 96366; 99222; 99285; J3475

== ENCOUNTER 2022-04-18 18:53 | Emergency (ER) | payer MEDICAID, SELFPAY ==
--- NOTE | 2022-04-18 18:55 | ED_ITS ---
HPI - Overdose General Stated Complaint: OD,NARCAN GIVEN,PT DENIES OD PER EMS Time Seen by Provider: 04/18/22 18:55 Source: patient and EMS Mode of arrival: EMS Limitations: no limitations History of Present Illness HPI Narrative: 21-year-old male reports no past medical history presents to the emergency department with EMS, according to patient he took 3 Klonopin and police went to him after somebody called EMS, he states he was talking to police and they Narcan and him he tells me he was awake and alert the whole time. Denies SI, HI. Tells me he never lost consciousness and he remembers the entire event. Patient is alert and oriented x4. Denies medical complaints. Saturating well with stable vital signs, does not want help he says he does not need behavioral health counseling for a substance use disorder evaluation requesting to go home. Related Data Home Medications Medication Instructions Recorded Confirmed clonazepam 1 mg tablet (Klonopin) 1 mg PO BID 03/09/22 03/09/22 Previous Rx's Medication Instructions Recorded naloxone 4 mg/actuation nasal 4 mg intranasal Q2M PRN opioid 03/08/22 spray (Narcan) overdose #2 ea Allergies Allergy/AdvReac Type Severity Reaction Status Date / Time No Known Allergies Allergy Verified 01/16/20 15:06 Review of Systems Review of Systems: Constitutional : No Weight loss, No Fever, No Chills, No Fatigue, No Malaise ENT/Mouth : No sore throat, No Rhinorrhea Eyes: No Eye Pain, No Swelling, No Redness Cardiovascular : No Chest Pain, No SOB, No Dyspnea on Exertion, No Orthopnea, No Edema, No Palpitations Respiratory : No Cough, No Sputum, No Wheezing Gastrointestinal : No Nausea, No Vomiting, No Diarrhea, No Constipation, No abdominal Pain, No Hematochezia, No Melena Genitourinary : No Dysuria, No Urinary Frequency, No Hematuria, Musculoskeletal : No joint pain, No Myalgias, No Joint Swelling Skin : No Skin Lesions, No rash Neuro : No Weakness, No Numbness, No Dizziness, No Headache Psych : No Anxiety/Panic, No Depression, No SI or HI All other systems reviewed and are negative Yes all other systems are reviewed and are negative PMFSH Past Medical History Attestation statement: The following information was validated with the patient. Source: old records reviewed and nursing notes reviewed Medical History Anxiety No known health problems Social History Social History Alcohol intake: current Alcohol intake frequency: a few times a week Substance Use Type: Heroin, Opiates and Prescription Drugs Physical Exam Vital Signs: Vital Signs: vss Appearance: Alert.? Oriented X3.? No acute distress.? Head: Normocephalic, atraumatic, no step-offs or deformities Eyes: Pupils equal, round and reactive to light.? ENT: Pharynx normal.? Neck: Normal inspection.? Neck supple.? CVS: Normal heart rate and rhythm.? Pulses normal.? Respiratory: No respiratory distress.? Breath sounds normal.? Abdomen: Soft and nontender.? Skin: Skin warm and dry.? Normal skin color.? Normal skin turgor.? Extremities: No lower extremity edema.? No calf ttp. 5/5 strength to bilateral upper and lower extremities Neuro: Oriented X 3.? No motor deficit.? No sensory deficit. CN 2-12 intact Course Reevaluation(s) Reevaluation #1: Patient refusing a medical workup. Requesting to go home. Denies suicidal and homicidal ideation. Alert and oriented x4. There is no indication to place patient on a [address]. Well appearing. Patient will be discharged home with home Narcan again refusing further intervention at this time. Time: 19:03 Medical Decision Making Medical Decision Making [facility] Narrative: 1856 21-year-old male presents sp being narcaned by police tells me he took to much klonopin however was never unresponsive just drowsy PD narcaned. Alert and oriented x4, vague/poor historian, uncooperative with history taking.? Was given 4 mg naswal Narcan prior to arrival.? Denies SI and HI.? No reported trauma. Doesnt want SUDE Physical exam benign.? Neuro nonfocal. Concerns for polysubstance accidental overdose. Plan at this time medical clearance, patient refusing substance use disorder evaluation Differential Diagnosis Differential Diagnoses: The differential diagnosis associated with the presentation includes Concerns for polysubstance accidental overdose Admission/Observation Consideration of admission/observation: Escalation of care including admission/observation considered Core Measures AMI core measures followed: Yes Measure exclusions: not indicated Critical Care Time Critical Care Time Critical Care Time: No Discharge Plan Discharge Clinical Impression: Drug overdose Patient Disposition: Home, Self-Care Instructions: Adult Overdose (ED) Additional Instructions: Take your medications as prescribed. If you were prescribed antibiotics today, it is important that you take your medication to their entirety, do not skip any doses, do not finish them early. Follow-up with your primary care provider this week. Return to the emergency department with new or worsening symptoms. Such as fevers, chills, chest pain, shortness of breath, nausea, vomiting, dizziness, headache, vision changes, lethargy, suicidal or homicidal ideation In case of emergency call 911 Prescriptions: No Action naloxone [Narcan] 4 mg/actuation spray,non-aerosol 4 mg intranasal Q2M PRN (Reason: opioid overdose) Qty: 2 0RF Rx Instructions: spray 1 dose into ONE nostril; alternate nostrils w each dose until help arrives clonazepam [Klonopin] 1 mg Tablet 1 mg PO BID Referrals: ED Physician,Generic [Emergency Provider] - 2 days
[2022-04-18 18:59] VITALS: BP 130/88; PULSE 62; RESP 20; TEMP 36.6; O2SAT 100; BMI 19.2
[2022-04-18] MEDS: Naloxone HCl Nasal TAKE HOME 4 MG SPRAY NOSTRILALT (19:09)
--- NOTE | 2022-04-18 19:10 | PC.NURSE ---
patient arrived via EMS. PA to see patient upon arrival. patient stated to PA that he does not wish to have any work work up done and would like to go home. patient dc paper work printed and take home narcan provided to patient.
== END 2022-04-18 19:14 | disposition home or self-care (01) ==
LOC: HO.ED 19:13
PROVIDERS: Emergency Provider Internal Medicine
DX: R40.0 Somnolence (principal); T50.901A Poisoning by unspecified drugs, medicaments and biological substances, accidental (unintentional), initial encounter; Y92.009 Unspecified place in unspecified non-institutional (private) residence as the place of occurrence of the external cause; F19.10 Other psychoactive substance abuse, uncomplicated
CPT/HCPCS: 99282; 99283

== ENCOUNTER 2022-04-28 08:42 | Emergency (ER) | payer MEDICAID, SELFPAY ==
[2022-04-28 08:49] VITALS: BP 118/77; PULSE 69; RESP 14; O2SAT 100; BMI 19.8
--- NOTE | 2022-04-28 09:04 | ED.GENADULT ---
HPI - General Adult General Chief complaint: General Medical Stated complaint: needs medication Time Seen by Provider: 04/28/22 09:03 Source: patient Mode of arrival: ambulatory Limitations: no limitations History of Present Illness HPI narrative: 21 yo male with history of polysubstance abuse and multiple overdoses who presents to the ER for evaluation of polysubstance abuse and desire to get on Suboxone. He states he uses ?half a pack of intranasal heroin/fentanyl per day which equates to about 50 bags. He last used last night. He has history of recurring overdoses. He denies any other drug use. He is trying to get a psychiatrist for other mental illness treatment including anxiety. He wants to get clean. MD complaint: Opioid use disorder. Onset (ago): month(s) Pain Consistency: constant Relieving factors: none Exacerbating factors: none Associated symptoms: denies other symptoms Treatments prior to arrival: none Related Data Home Medications Medication Instructions Recorded Confirmed clonazepam 1 mg tablet (Klonopin) 1 mg PO BID 03/09/22 03/09/22 Previous Rx's Medication Instructions Recorded naloxone 4 mg/actuation nasal 4 mg intranasal Q2M PRN opioid 03/08/22 spray (Narcan) overdose #2 ea Allergies Allergy/AdvReac Type Severity Reaction Status Date / Time No Known Allergies Allergy Verified 01/16/20 15:06 Review of Systems Review of Systems: Yes all other systems are reviewed and are negative [facility] Past Medical History Medical History Anxiety No known health problems Social History Social History Alcohol intake: current Alcohol intake frequency: a few times a week Substance Use Type: Heroin, Opiates and Prescription Drugs Physical Exam ED Vital Signs: Vital Signs - 24 hr 04/28/22 08:49 Pulse Rate 69 Respiratory Rate 14 Blood Pressure 118/77 Pulse Oximetry 100 Oxygen Delivery Method Room Air BMI result Body Mass Index 19.8 Appearance: Alert. Oriented X3. No acute distress. HEENT: normal inspection CVS: Normal heart rate and rhythm. Pulses normal. Respiratory: No respiratory distress. Skin: Normal skin color. Extremities: normal insepction Neuro/psych: Oriented X 3. Grossly normal, nonfocal, steady gait, normal speech and cognition. Appropriate affect Course Course Course Narrative: 21-year-old male with history of polysubstance disease, primarily opiates, up to 50 bags of fentanyl/heroin per day, using intranasally who presents to the ER for initiation of Suboxone. 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 Last heroin use was last night. Reevaluation(s) Reevaluation #1: Patient to be taken to comprehensive Care to meet with Masha Lane LAP MAKER :) Medical Decision Making Differential Diagnosis Differential Diagnoses: The differential diagnosis associated with the presentation includes opioid use disorder, polysubstance abuse, no evidence of acute withdrawal External Record Review External record reviewed: Inpatient record, Outpatient record and Prior outpatient labs Tests considered The following testing was considered but not selected: labs considered, not required at this time. to go directly to comp care Critical Care Time Critical Care Time Critical Care Time: No Discharge Plan Discharge Clinical Impression: Polysubstance abuse Patient Disposition: Home, Self-Care Instructions: Polysubstance Abuse (ED) Additional Instructions: Follow up directly with Masha Lnae Prescriptions: No Action naloxone [Narcan] 4 mg/actuation spray,non-aerosol 4 mg intranasal Q2M PRN (Reason: opioid overdose) Qty: 2 0RF Rx Instructions: spray 1 dose into ONE nostril; alternate nostrils w each dose until help arrives clonazepam [Klonopin] 1 mg Tablet 1 mg PO BID Interventions: ED Discharge Assessment Last Done: 04/28/22 09:55 Discharge Date/Time: 04/28/22 09:55
== END 2022-04-28 09:55 | disposition home or self-care (01) ==
PROVIDERS: Emergency Provider Emergency Medicine
DX: F19.10 Other psychoactive substance abuse, uncomplicated (principal); Z79.899 Other long term (current) drug therapy
CPT/HCPCS: 80305; 99202; 99282; 99283

== ENCOUNTER 2022-06-23 21:37 | Emergency (ER) | payer MEDICAID, SELFPAY ==
[2022-06-23 21:50] VITALS: BP 117/76; PULSE 90; RESP 16; TEMP 36.7; O2SAT 100; BMI 20.1
--- NOTE | 2022-06-23 22:29 | ED.OVERDOSE ---
HPI - Overdose General Chief Complaint: Overdose Stated Complaint: Overdose Time Seen by Provider: 06/23/22 22:26 Source: patient Mode of arrival: ambulatory History of Present Illness HPI Narrative: Patient's history of opiate abuse user about a bundle a day stopped. About 4 days ago today was feeling bad nauseated in withdrawal so took 3 bags of heroin mother noticed patient not responding and overdosed given Narcan within few minutes patient awake cooperative alert and oriented x3 denies any depression or SI feel nauseated Related Data Previous Rx's Medication Instructions Recorded naloxone 4 mg/actuation nasal 4 mg intranasal Q2M PRN opioid 03/08/22 spray (Narcan) overdose #2 ea buprenorphine 2 mg-naloxone 0.5 mg 1 film sublingual BID #10 ea 04/28/22 sublingual film (Suboxone) clonidine HCl 0.1 mg tablet 0.1 mg PO Q6H PRN opiate reversal 06/23/22 48 hours #8 tabs Allergies Allergy/AdvReac Type Severity Reaction Status Date / Time No Known Allergies Allergy Verified 04/28/22 10:22 Review of Systems Review of Systems: Yes all other systems are reviewed and are negative PMFSH Past Medical History Medical History Anxiety No known health problems Social History Social History Alcohol intake: never Smoked in Last 30 Days: Yes Use of substances other than those prescribed or required for medical reasons: Yes Substance Use Type: Heroin Substance Use Frequency: Chronic Longstanding Last Used Substance: Just Prior to Admission Any prior treatment program specific to substance use: No Advance Directives: No Advance Directives Information Provided: No Physical Exam Vital Signs: Vital Signs: Last Vital Signs Temp 98.1 F 06/23/22 21:50 Pulse 90 06/23/22 21:50 Resp 16 06/23/22 21:50 BP 117/76 06/23/22 21:50 Pulse Ox 100 06/23/22 21:50 O2 Del Method Room Air 06/23/22 21:59 BMI result Body Mass Index 20.1 Appearance: Alert. Oriented X3. No acute distress. Eyes: PERRLA, No Nystagmus ENT: Pharynx normal. Oral Mucosa moist Neck: Normal inspection. Neck supple. CVS: Normal heart rate and rhythm. Pulses normal. Respiratory: No respiratory distress. Equal air entry bilateral, no wheezing/rales/rhonchi Abdomen: Soft and nontender. Bowel sounds are present, no mass palpable, no CVA tenderness Skin: Skin warm and dry. Normal skin color. Normal skin turgor. Extremities: No lower extremity edema. No calf tenderness Neuro: Oriented X 3. No motor deficit. No sensory deficit.No cerebellar signs , cranial nerves II-XII intact Medical Decision Making Medical Decision Making MDM Narrative: Patient with opiate abuse does want to stay in the ER for detox placement has a plan to see detox apartment upstairs will follow-up as outpatient Discharge Plan Discharge Clinical Impression: Opioid use disorder Patient Disposition: Home, Self-Care Instructions: Opioid Use Disorder (ED) Additional Instructions: Stop using opiates Follow up with detox Clonidine as advised for withdrawal Prescriptions: New clonidine HCl 0.1 mg tablet 0.1 mg PO Q6H PRN (Reason: opiate reversal) 2 Days Qty: 8 0RF No Action naloxone [Narcan] 4 mg/actuation spray,non-aerosol 4 mg intranasal Q2M PRN (Reason: opioid overdose) Qty: 2 0RF Rx Instructions: spray 1 dose into ONE nostril; alternate nostrils w each dose until help arrives buprenorphine-naloxone [Suboxone] 2-0.5 mg film 1 film sublingual BID Qty: 10 0RF Interventions: ED Discharge Assessment Last Done: 06/23/22 23:34 Discharge Date/Time: 06/23/22 23:37
== END 2022-06-23 23:37 | disposition home or self-care (01) ==
PROVIDERS: Emergency Provider Internal Medicine
DX: F11.20 Opioid dependence, uncomplicated (principal)
CPT/HCPCS: 99284; 99285

== ENCOUNTER 2022-10-21 18:07 | Emergency (ER) | payer MEDICAID, SELFPAY ==
--- NOTE | 2022-10-21 18:19 | ED.GENADULT ---
HPI - General Adult General Chief complaint: Overdose Stated complaint: overdose Time Seen by Provider: 10/21/22 18:15 Source: patient and EMS Mode of arrival: EMS Limitations: other (unreliable historian ) History of Present Illness HPI narrative: 22-year-old male presents with a ?accidental ?overdose. Patient reports that he took 3-4 Klonopin 1 mg due to increasing anxiety. Unable to tell me what was making him anxious. He reports he just remembers his friends calling 911 and ambulance arriving. He took klonapin in his bed and woke up in his bed. No head strike or trauma. Patient reports he feels fine. No suicidal or homicidal ideation. Denies alcohol and tobacco. No hallucinations. No medical complaints. Feeling fine. Denies hx of overdose in the past. Did not get Narcan Related Data Previous Rx's Medication Instructions Recorded naloxone 4 mg/actuation nasal 4 mg intranasal Q2M PRN opioid 03/08/22 spray (Narcan) overdose #2 ea buprenorphine 2 mg-naloxone 0.5 mg 1 film sublingual BID #10 ea 04/28/22 sublingual film (Suboxone) clonidine HCl 0.1 mg tablet 0.1 mg PO Q6H PRN opiate reversal 06/23/22 48 hours #8 tabs Allergies Allergy/AdvReac Type Severity Reaction Status Date / Time No Known Allergies Allergy Verified 04/28/22 10:22 Review of Systems Review of Systems: Constitutional : No Fever, No Chills ENT/Mouth : No sore throat, No Rhinorrhea Eyes: No Eye Pain, No Swelling, No Redness Cardiovascular : No Chest Pain, No SOB Respiratory : No Cough, No Sputum Gastrointestinal : No Nausea, No Vomiting, No Diarrhea, No abdominal Pain Genitourinary : No Dysuria, No Hematuria Musculoskeletal : No joint pain, No Myalgias, No Joint Swelling Skin : No Skin Lesions, No rash Neuro : No Weakness, No Numbness Psych : + Anxiety, No Depression, No SI/HI/AH/VH All other systems reviewed and are negative Yes all other systems are reviewed and are negative [facility] Past Medical History Attestation statement: The following information was validated with the patient. Source: old records reviewed and nursing notes reviewed Medical History Anxiety No known health problems Social History Social History Alcohol intake: unknown Smoked in Last 30 Days: Yes Use of substances other than those prescribed or required for medical reasons: No Substance Use Type: Heroin Physical Exam ED Vital Signs: Vital Signs - 24 hr 10/21/22 18:32 Temperature 98.3 F Respiratory Rate 18 Blood Pressure 122/76 Pulse Oximetry 98 Oxygen Delivery Method Room Air BMI result Body Mass Index 19.2 vss Appearance: Alert.? Oriented X3.? No acute distress.? Head: Normocephalic, atraumatic, no step-offs or deformities Eyes: Pupils equal, round and reactive to light.? ENT: Pharynx normal.? Patient has crusted blue material surrounding his mouth it looks keep dry pills Neck: Normal inspection.? Neck supple.? CVS: Normal heart rate and rhythm.? Pulses normal.? Respiratory: No respiratory distress.? Breath sounds normal.? Abdomen: Soft and nontender.? Skin: Skin warm and dry.? Normal skin color.? Normal skin turgor.? Extremities: No lower extremity edema.? No calf ttp. 5/5 strength to bilateral upper and lower extremities Neuro: Oriented X 3.? No motor deficit.? No sensory deficit. CN 2-12 intact Course Reevaluation(s) Reevaluation #1: Labs pending. Patient tells me that he does not want any help he is in a program. Will get labs, EKG and patient will likely be discharged home. Time: 18:35 Reevaluation #2: EKG unremarkable. Labs pending. Urine pending. Patient has not yet given us a urine sample. sign out iwll be given to KEMAR Clay Medical Decision Making Medical Decision Making [facility] Narrative: 182 22-year-old male presents with an accidental overdose on Klonopin reports he took 2-3 pills 1 mg. No SI or HI. Upon review of [employer]PERATOR, patient is not prescribed Klonopin. Physical exam significant for Patient has crusted blue material surrounding his mouth it looks keep dry pills. Alert and oriented x4. Regular rate and rhythm. Breath sounds clear. Abdomen soft nontender nondistended. Neuro nonfocal. GCS 15. NIH stroke scale 0. No signs of acute trauma. Likely overdose on Klonopin. Will rule out polysubstance abuse, alcohol intoxication although unlikely. Unlikely metabolic derangements. No signs of trauma to head, neck, chest, abdomen or pelvis. Will obtain EKG. Plan will monitor and medically clear and have a substance use disorder evaluation on patient. Differential Diagnosis Differential Diagnoses: The differential diagnosis associated with the presentation includes Likely overdose on Klonopin. Will rule out polysubstance abuse, alcohol intoxication although unlikely. Unlikely metabolic derangements. No signs of trauma to head, neck, chest, abdomen or pelvis. Will obtain EKG. Admission/Observation Consideration of admission/observation: Escalation of care including admission/observation considered unlikely Lab Data MDM Lab Attestation statement: I reviewed the patient's lab results. Independent Interpretation I performed an independent interpretation of an: EKG (Ventricular rate of 82, [place] normal, QRS normal, QT/QTC prolonged. EKG normal sinus rhythm, QT/QTC prolonged, no ST elevations inversions concerning for acute ischemia.) Core Measures AMI core measures followed: Yes Measure exclusions: not indicated Critical Care Time Critical Care Time Critical Care Time: No Discharge Plan Discharge Clinical Impression: Benzodiazepine overdose Patient Disposition: Still a Patient Instructions: Benzodiazepine Overdose (ED) Additional Instructions: Take your medications as prescribed. If you were prescribed antibiotics today, it is important that you take your medication to their entirety, do not skip any doses, do not finish them early. Follow-up with your primary care provider this week. Return to the emergency department with new or worsening symptoms. Such as fevers, chills, chest pain, shortness of breath, nausea, vomiting, dizziness, headache, vision changes, lethargy, suicidal or homicidal ideation In case of emergency call 911 Prescriptions: No Action naloxone [Narcan] 4 mg/actuation spray,non-aerosol 4 mg intranasal Q2M PRN (Reason: opioid overdose) Qty: 2 0RF Rx Instructions: spray 1 dose into ONE nostril; alternate nostrils w each dose until help arrives clonidine HCl 0.1 mg tablet 0.1 mg PO Q6H PRN (Reason: opiate reversal) 2 Days Qty: 8 0RF buprenorphine-naloxone [Suboxone] 2-0.5 mg film 1 film sublingual BID Qty: 10 0RF [facility]Provider [facility] - 2 days Stand Alone Forms: Work/School Release
[2022-10-21 18:20] VITALS: BP 110/62; PULSE 56; O2SAT 99; BMI 19.2
--- NOTE | 2022-10-21 18:20 | ECG_ITS ---
Test Reason : OD Blood Pressure : / mmHG Vent. Rate : 083 BPM Atrial Rate : 083 BPM P-R Int : 162 ms QRS Dur : 082 ms QT Int : 406 ms P-R-T Axes : 071 042 040 degrees QTc Int : 477 ms Normal sinus rhythm Normal ECG When compared with ECG of 09-MAR-2022 01:10, Vent. rate has increased BY 48 BPM QT has lengthened Referred By: Lilia Johansen Electronically Signed By:IGLESIA GARCIA
--- NOTE | 2022-10-21 18:27 | PC.NURSE ---
Patient arrived from home via ems after taking 3 mg of klonapin. states put 3mg under tongue to let it dissolve. Patient states he was feeling anxious and was not trying to harm himself. States has a prescription for the klonopin. After taking the medication he feel askeep and woke up with the group home paraprofessional in his house. Change into hospital attire, ekg obatined.
[2022-10-21 18:32] VITALS: BP 122/76; RESP 18; TEMP 36.8; O2SAT 98
[2022-10-21 19:09] LABS: MANUAL DIFF FLAG NO
[2022-10-21 19:24] LABS: COVID-19 Test Negative (Negative); Ethanol < 10 mg/dL; IDNOW Serial# 08D9AD1C
[2022-10-21 19:27] LABS: Alanine Aminotransferase 29 U/L (0-40); Albumin Level 4.3 g/dL (3.5-5.0); Alkaline Phosphatase 69 U/L (39-117); Anion Gap 14 (12-20); Aspartate Amino Transferase 23 U/L (5-37); Bilirubin Total 1.6 mg/dL (0.0-1.0); Blood Urea Nitrogen 15 mg/dL (9-16); Calcium 9.3 mg/dL (8.4-10.2); Carbon Dioxide 24 mmol/L (22-29); Chloride 110 mmol/L (96-108); Creatinine Clr Calc Pharmacy 85.5; Estimated Glomerular Filt Rate > 60; Glucose Random 104 mg/dL (60-115); Magnesium 2.1 mg/dL (1.6-2.6); Potassium 3.3 mmol/L (3.3-5.1); Sodium 145 mmol/L (135-145); Total Protein 6.9 g/dL (6.5-8.0)
[2022-10-21 19:30] LABS: Basophils Absolute Auto 0.1 X10*3/uL (0.0-0.2); Basophils Percent Auto 0.9 % (0-2); Eosinophils Absolute Auto 0.1 X10*3/uL (0.0-0.4); Eosinophils Percent Auto 1.4 % (0-4); Hematocrit 37.4 % (42.0-52.0); Hemoglobin 12.9 g/dl (14.0-18.0); Imm Gran Abs Auto 0.01 X10*3/uL (0.00-0.03); Imm Gran Pct Auto 0.2 % (0.0-0.4); Lymphocytes Absolute Auto 2.9 X10*3/uL (1.2-4.9); Lymphocytes Percent Auto 44.5 % (20-40); Mean Corpuscular HGB Conc 34.5 g/dl (31.0-36.0); Mean Corpuscular Hemoglobin 28.4 pg (27.0-33.0); Mean Corpuscular Volume 82.2 fL (80.0-98.0); Mean Platelet Volume 9.9 fL (9.4-12.4); Monocytes Absolute Auto 0.6 X10*3/uL (0.1-1.2); Monocytes Percent Auto 8.9 % (2-11); Neutrophils Absolute Auto 2.9 x10*3/uL (2.0-8.3); Neutrophils Percent Auto 44.1 % (45-73); Platelet Count 235 X10*3/uL (160-400); Red Blood Count 4.55 X10*6/uL (4.60-5.80); Red Cell Distribution Width 12.5 % (11.0-16.0); White Blood Count 6.5 X10*3/uL (4.8-10.8)
[2022-10-21 19:31] LABS: Acetaminophen LAB < 17 mcg/mL (<30); Salicylate < 5.0 mg/dL (15-30)
[2022-10-21 20:11] VITALS: BP 90/50; PULSE 53; RESP 10; TEMP 36.7; O2SAT 94
[2022-10-21 23:08] VITALS: BP 97/66; PULSE 67; O2SAT 94
[2022-10-21 23:39] VITALS: BP 124/85; PULSE 72; RESP 18; O2SAT 98
== END 2022-10-22 00:04 | disposition home or self-care (01) ==
PROVIDERS: Physician Assistant; Emergency Provider Emergency Medicine; PCP Internal Medicine
DX: T42.4X1A Poisoning by benzodiazepines, accidental (unintentional), initial encounter (principal); Y92.9 Unspecified place or not applicable; F41.9 Anxiety disorder, unspecified; F11.20 Opioid dependence, uncomplicated
CPT/HCPCS: 36415; 80053; 80143; 80179; 80307; 83735; 85025; 87635; 93005; 99285

== ENCOUNTER 2022-11-04 05:35 | Emergency (ER) | payer MEDICAID, SELFPAY ==
[2022-11-04 05:41] VITALS: BP 128/74; PULSE 90; RESP 16; TEMP 36.5; O2SAT 92; O2SAT 97; BMI 17.8
--- NOTE | 2022-11-04 05:52 | ECG_ITS ---
Test Reason : OD Blood Pressure : / mmHG Vent. Rate : 078 BPM Atrial Rate : 078 BPM P-R Int : 174 ms QRS Dur : 082 ms QT Int : 376 ms P-R-T Axes : 080 078 064 degrees QTc Int : 428 ms Normal sinus rhythm Right atrial enlargement Early repolarization Borderline ECG When compared with ECG of 21-OCT-2022 18:30, No significant change was found Referred By: Generic ED Physician Electronically Signed By:IGLESIA GARCIA
[2022-11-04 06:38] LABS: Hematocrit 43.7 % (42.0-52.0); Hemoglobin 15.4 g/dl (14.0-18.0); Mean Corpuscular HGB Conc 35.2 g/dl (31.0-36.0); Mean Corpuscular Hemoglobin 29.1 pg (27.0-33.0); Mean Corpuscular Volume 82.6 fL (80.0-98.0); Mean Platelet Volume 9.7 fL (9.4-12.4); Platelet Count 256 X10*3/uL (160-400); Red Blood Count 5.29 X10*6/uL (4.60-5.80); Red Cell Distribution Width 12.9 % (11.0-16.0); White Blood Count 9.7 X10*3/uL (4.8-10.8)
--- NOTE | 2022-11-04 06:53 | ED.OVERDOSE ---
HPI - Overdose General Chief Complaint: Overdose Stated Complaint: OD,NARCAN GIVEN W/GOOD EFFECT PER EMS Time Seen by Provider: 11/04/22 06:46 Source: patient and EMS Mode of arrival: EMS Limitations: no limitations History of Present Illness HPI Narrative: 22-year-old male past medical history of opiate use disorder on methadone presents to the emergency department with EMS, according to patient he used 3 bags of heroin somebody called EMS they arrived and gave him Narcan. Denies SI, HI.?Overdosed on his bed no fall or trama.? Patient is alert and oriented x4.? Denies medical complaints.? Saturating well with stable vital signs. Patinet doesnt want a SUDE states he doent need it. Related Data Previous Rx's Medication Instructions Recorded naloxone 4 mg/actuation nasal 4 mg intranasal Q2M PRN opioid 03/08/22 spray (Narcan) overdose #2 ea buprenorphine 2 mg-naloxone 0.5 mg 1 film sublingual BID #10 ea 04/28/22 sublingual film (Suboxone) clonidine HCl 0.1 mg tablet 0.1 mg PO Q6H PRN opiate reversal 06/23/22 48 hours #8 tabs naloxone 4 mg/actuation nasal 4 mg intranasal Q2M PRN opioid 11/04/22 spray (Narcan) overdose #2 ea Allergies Allergy/AdvReac Type Severity Reaction Status Date / Time No Known Allergies Allergy Verified 04/28/22 10:22 Review of Systems Review of Systems: Constitutional : No Fever, No Chills ENT/Mouth : No sore throat, No Rhinorrhea Eyes: No Eye Pain, No Swelling, No Redness Cardiovascular : No Chest Pain, No SOB Respiratory : No Cough, No Sputum Gastrointestinal : No Nausea, No Vomiting, No Diarrhea, No abdominal Pain Genitourinary : No Dysuria, No Hematuria Musculoskeletal : No joint pain, No Myalgias, No Joint Swelling Skin : No Skin Lesions, No rash Neuro : No Weakness, No Numbness Psych : No Anxiety, No Depression, No SI/HI/AH/VH All other systems reviewed and are negative Yes all other systems are reviewed and are negative [facility] Past Medical History Attestation statement: The following information was validated with the patient. Source: old records reviewed and nursing notes reviewed Medical History Anxiety No known health problems Social History Social History Alcohol intake: never Smoked in Last 30 Days: No Use of substances other than those prescribed or required for medical reasons: No Substance Use Type: Heroin Advance Directives: No Advance Directives Information Provided: No Physical Exam Vital Signs: Vital Signs: Last Vital Signs Temp 97.7 F 11/04/22 05:41 Pulse 90 11/04/22 05:41 Resp 16 11/04/22 05:41 Pulse Ox 92 11/04/22 05:41 O2 Del Method Room Air 11/04/22 05:41 BMI result Body Mass Index 17.8 vss Appearance: Alert.? Oriented X3.? No acute distress.? Head: Normocephalic, atraumatic, no step-offs or deformities Eyes: Pupils equal, round and reactive to light.? CVS: Normal heart rate and rhythm.? Pulses normal.? Respiratory: No respiratory distress.? Breath sounds normal.? Abdomen: Soft and nontender.? Skin: Skin warm and dry.? Normal skin color.? Normal skin turgor.? Extremities: No lower extremity edema.? No calf ttp. 5/5 strength to bilateral upper and lower extremities Back: No midline tenderness, no C-spine tenderness, full range of motion, no CVA tenderness bilaterally Neuro: Oriented X 3.? No motor deficit.? No sensory deficit. CN 2-12 intact Course Reevaluation(s) Reevaluation #1: Educated patient on diagnosis and treatment plan, answered all question, patient verbalizes understanding. At this time patient will be discharged home, advised to return with new or worsening symptoms. Educated on worrisome signs and symptoms and when to return. At this time I feel comfortable discharge home. Medical Decision Making Medical Decision Making [facility] Narrative: 18[birth year] 21-year-old male presents sp [place] [facility] [place] me [place] used to much heroin. Physical exam benign.? Neuro nonfocal. Concerns for polysubstance accidental overdose. Plan patient to be discharged home. Vital signs are stable. Does not want substance use disorder evaluation Differential Diagnosis Differential Diagnoses: The differential diagnosis associated with the presentation includes Concerns for polysubstance accidental overdose. Admission/Observation Consideration of admission/observation: Escalation of care including admission/observation considered No indication Lab Data [facility] Lab Attestation statement: I reviewed the patient's lab results. 11/04/22 06:32 11/04/22 06:32 Labs: Lab Results 11/04/22 11/04/22 Range/Units 06:32 06:32 WBC 9.7 (4.8-10.8) X10*3/uL RBC 5.29 (4.60-5.80) X10*6/uL Hgb 15.4 (14.0-18.0) g/dl Hct 43.7 (42.0-52.0) % MCV 82.6 (80.0-98.0) fL MCH 29.1 (27.0-33.0) pg MCHC 35.2 (31.0-36.0) g/dl RDW 12.9 (11.0-16.0) % Plt Count 256 (160-400) X10*3/uL MPV 9.7 (9.4-12.4) fL Absolute Nucleated RBC 0.000 (0.0-0.012) X10*3/uL Nucleated RBC % (auto) 0.0 (0.0-0.2) /100WBC Sodium 139 (135-145) mmol/L Potassium 4.5 D (3.3-5.1) mmol/L Chloride 105 (96-108) mmol/L Carbon Dioxide 20 L (22-29) mmol/L Anion Gap 19 (12-20) BUN 26 H (9-16) mg/dL Creatinine 1.31 (0.5-1.4) mg/dL Estim Creat Clear Calc 65.8 Estimated GFR > 60 Random Glucose 104 (60-115) mg/dL Calcium 10.5 H D (8.4-10.2) mg/dL Total Bilirubin 1.7 H (0.0-1.0) mg/dL AST 27 (5-37) U/L ALT 31 (0-40) U/L Alkaline Phosphatase 82 (39-117) U/L Total Protein 8.0 (6.5-8.0) g/dL Albumin 5.0 (3.5-5.0) g/dL Core Measures AMI core measures followed: Yes Measure exclusions: not indicated Discharge Plan Discharge Clinical Impression: Drug overdose Patient Disposition: Home, Self-Care Instructions: Adult Overdose (ED) Additional Instructions: Take your medications as prescribed. If you were prescribed antibiotics today, it is important that you take your medication to their entirety, do not skip any doses, do not finish them early. Follow-up with your primary care provider this week. Return to the emergency department with new or worsening symptoms. Such as fevers, chills, chest pain, shortness of breath, nausea, vomiting, dizziness, headache, vision changes, lethargy In case of emergency call 911 Prescriptions: New naloxone [Narcan] 4 mg/actuation spray,non-aerosol 4 mg intranasal Q2M PRN (Reason: opioid overdose) Qty: 2 0RF Rx Instructions: spray 1 dose into ONE nostril; alternate nostrils w each dose until help arrives No Action naloxone [Narcan] 4 mg/actuation spray,non-aerosol 4 mg intranasal Q2M PRN (Reason: opioid overdose) Qty: 2 0RF Rx Instructions: spray 1 dose into ONE nostril; alternate nostrils w each dose until help arrives clonidine HCl 0.1 mg tablet 0.1 mg PO Q6H PRN (Reason: opiate reversal) 2 Days Qty: 8 0RF buprenorphine-naloxone [Suboxone] 2-0.5 mg film 1 film sublingual BID Qty: 10 0RF Referrals: Physician,Unknown J [Primary Care Provider] - 2 days
[2022-11-04 06:54] LABS: Alanine Aminotransferase 31 U/L (0-40); Alkaline Phosphatase 82 U/L (39-117); Anion Gap 19 (12-20); Aspartate Amino Transferase 27 U/L (5-37); Bilirubin Total 1.7 mg/dL (0.0-1.0); Blood Urea Nitrogen 26 mg/dL (9-16); Calcium 10.5 mg/dL (8.4-10.2); Carbon Dioxide 20 mmol/L (22-29); Chloride 105 mmol/L (96-108); Creatinine Clr Calc Pharmacy 65.8; Estimated Glomerular Filt Rate > 60; Glucose Random 104 mg/dL (60-115); Potassium 4.5 mmol/L (3.3-5.1); Sodium 139 mmol/L (135-145)
[2022-11-04 07:23] VITALS: BP 100/70; PULSE 72; RESP 18; O2SAT 93
--- NOTE | 2022-11-04 07:43 | PC.NURSE ---
Discharge plan reviewed with patient who verbalized understanding
== END 2022-11-04 07:44 | disposition home or self-care (01) ==
PROVIDERS: Emergency Provider Emergency Medicine
DX: T40.1X1A Poisoning by heroin, accidental (unintentional), initial encounter (principal); Y92.9 Unspecified place or not applicable; R94.31 Abnormal electrocardiogram [ECG] [EKG]; Z79.899 Other long term (current) drug therapy
CPT/HCPCS: 36415; 80053; 85027; 93005; 99284; 99285

== ENCOUNTER 2022-11-04 23:19 | Emergency (ER) | payer MEDICAID, SELFPAY ==
[2022-11-04 23:21] VITALS: BP 115/77; PULSE 111; RESP 18; TEMP 36.8; O2SAT 97; BMI 20.5
[2022-11-04 23:41] VITALS: BP 113/83; PULSE 94; RESP 16; TEMP 36.5; O2SAT 98
--- NOTE | 2022-11-05 00:33 | ED_ITS ---
HPI - General Adult General Chief complaint: General Medical Stated complaint: Detox Time Seen by Provider: 11/05/22 00:17 Source: patient, RN notes reviewed and old records reviewed Mode of arrival: ambulatory Limitations: no limitations History of Present Illness HPI narrative: 22-year-old male presents for evaluation of anxiety. Patient reports that he has a longstanding history of anxiety. He reports that he used to be on lorazepam 3 times daily as needed for anxiety. He reports that he has tried hydroxyzine in the past without any relief Patient states that he eventually started using heroin to cope with his anxiety Patient came in as an overdose early yesterday morning after he used 3 bags of heroin. Patient states that he woke up in a panic attack and that is what prompted him to use Patient is on 90 mg of methadone daily He states it helps with the withdrawal symptoms but does not help his anxiety Patient states he occasionally feels depressed but is not currently suicidal He is interested in starting something for anxiety He does not have a primary doctor Related Data Previous Rx's Medication Instructions Recorded naloxone 4 mg/actuation nasal 4 mg intranasal Q2M PRN opioid 03/08/22 spray (Narcan) overdose #2 ea buprenorphine 2 mg-naloxone 0.5 mg 1 film sublingual BID #10 ea 04/28/22 sublingual film (Suboxone) clonidine HCl 0.1 mg tablet 0.1 mg PO Q6H PRN opiate reversal 06/23/22 48 hours #8 tabs naloxone 4 mg/actuation nasal 4 mg intranasal Q2M PRN opioid 11/04/22 spray (Narcan) overdose #2 ea lorazepam 1 mg tablet 1 mg PO BID PRN anxiety #14 tabs 11/05/22 Allergies Allergy/AdvReac Type Severity Reaction Status Date / Time No Known Allergies Allergy Verified 04/28/22 10:22 Review of Systems Constitutional: Constitutional: Reports as per HPI, Denies chills, Denies fatigue, Denies fever(s) and Denies headache(s) ENT: Denies headache(s) Cardiovascular: Cardiovascular: Denies chest pain and Denies dyspnea Respiratory: Respiratory: Denies cough and Denies dyspnea Gastrointestinal: Gastrointestinal: Denies abdominal pain, Denies constipation and Denies vomiting Genitourinary: Genitourinary: Denies difficulty urinating and Denies dysuria Neurologic: Denies headache(s) and Denies focal weakness Endocrine: Endocrine: Denies fatigue PMFSH Past Medical History Medical History Anxiety No known health problems Social History Social History Alcohol intake: current Alcohol intake frequency: holidays/special occasions only Smoked in Last 30 Days: Yes Use of substances other than those prescribed or required for medical reasons: Yes Substance Use Type: Marijuana Substance Use Frequency: Occasionally Advance Directives: No Advance Directives Information Provided: Yes Physical Exam ED Vital Signs: Vital Signs - 24 hr 11/04/22 23:21 11/04/22 23:41 Temperature 98.3 F 97.7 F Pulse Rate 111 H 94 Respiratory Rate 18 16 Blood Pressure 115/77 113/83 Pulse Oximetry 97 98 Oxygen Delivery Method Room Air Room Air BMI result Body Mass Index 20.5 Const General: healthy appearing, comfortable, no acute distress, alert and awake Nutritional Appearance: well nourished Orientation/consciousness: patient oriented x3 HENMT Head: Yes normocephalic and Yes atraumatic Eyes Eyelids: Yes eyelids normal Conjunctivae: conjunctivae normal Sclerae: sclerae normal Corneas: corneas normal Pupils: Equal, round and reactive pupils present EOM: EOMs intact bilaterally Neck Neck: Yes full ROM Resp Effort & Inspection: normal respiratory effort, able to speak in complete sentences and not labored Skin General skin exam: no rashes or lesions noted and elasticity normal Neuro General: patient oriented x3 Cranial nerves: Yes Equal, round and reactive pupils present and Yes Bilaterally intact EOM present Cognition (Neuro): normal cognition Extrem Other: Moving all extremities well without any obvious deformities Course Course Course Narrative: Did not evaluagte patient. Medications Administered Discontinued Medications Generic Name Dose Route Start Last Admin Trade Name Freq PRN Reason Stop Dose Admin Lorazepam 1 mg 11/05/22 00:44 11/05/22 00:47 Lorazepam 1 Mg Tablet PO 11/05/22 00:45 1 mg ONCE ONE Administration Medical Decision Making Medical Decision Making MDM Narrative: 22-year-old male presents for evaluation of anxiety. Patient admits to opiate abuse but is currently on methadone. I had a lengthy discussion with the patien t regarding the appropriate avenues to get started on antianxiety/antidepressant medication. He reports that he will be able to follow-up with a psychologist at his methadone clinic started next week. I agree to give him a short course of Ativan in the meantime until he can get started on a better long-term antianxiety medication patient was strictly advised not to use heroin while taking benzos Differential Diagnosis Differential Diagnoses: The differential diagnosis associated with the presentation includes Anxiety Substance abuse Polysubstance abuse Drug overdose Discharge Plan Discharge Clinical Impression: Anxiety Patient Disposition: Home, Self-Care Instructions: Anxiety (ED) Additional Instructions: You may take the lorazepam up to twice daily as needed for anxiety Do not use her when while taking this medication Follow-up with your psychologist at the clinic next week as discussed I think he would likely benefit from a long-term antianxiety/antidepressant medication Return for new or worsening symptoms Prescriptions: New lorazepam 1 mg tablet 1 mg PO BID PRN (Reason: anxiety) Qty: 14 0RF No Action naloxone [Narcan] 4 mg/actuation spray,non-aerosol 4 mg intranasal Q2M PRN (Reason: opioid overdose) Qty: 2 0RF Rx Instructions: spray 1 dose into ONE nostril; alternate nostrils w each dose until help arrives clonidine HCl 0.1 mg tablet 0.1 mg PO Q6H PRN (Reason: opiate reversal) 2 Days Qty: 8 0RF naloxone [Narcan] 4 mg/actuation spray,non-aerosol 4 mg intranasal Q2M PRN (Reason: opioid overdose) Qty: 2 0RF Rx Instructions: spray 1 dose into ONE nostril; alternate nostrils w each dose until help arrives buprenorphine-naloxone [Suboxone] 2-0.5 mg film 1 film sublingual BID Qty: 10 0RF Interventions: ED Discharge Assessment Last Done: 11/05/22 00:57 Discharge Date/Time: 11/05/22 00:59
[2022-11-05] MEDS: LORazepam 1 MG TABLET PO (00:47)
== END 2022-11-05 00:59 | disposition home or self-care (01) ==
PROVIDERS: Emergency Provider Emergency Medicine
DX: F41.1 Generalized anxiety disorder (principal); F43.0 Acute stress reaction; Z79.899 Other long term (current) drug therapy
CPT/HCPCS: 99284

== ENCOUNTER 2022-12-22 14:58 | Emergency (ER) | payer MEDICAID, SELFPAY ==
[2022-12-22 15:10] VITALS: BP 113/77; PULSE 87; O2SAT 99
--- NOTE | 2022-12-22 15:13 | ED_ITS ---
HPI - General Adult General Chief complaint: General Medical Stated complaint: OD PER EMS Time Seen by Provider: 12/22/22 15:13 Source: patient and EMS Mode of arrival: EMS Limitations: no limitations History of Present Illness HPI narrative: Patient is a 22 year old assigned male at with a history of opiate use presenting to the emergency department today after an accidental overdose. Patient states that he used and the next thing he knew, was being woken up by EMS. Patient states that he is also on methadone daily at 100mg per day. Patient denies wanting any help / resources at this time. Patient denies any dizziness, lightheadedness, abdominal pain, nausea, vomiting, fever, chills, blurry vision, double vision, loss of vision, chest pain, difficulty breathing, shortness of breath, back pain, night sweats, pain with urination, increased urinary frequency, increased urinary urgency, blood in his urine or stool, syncope or a near syncopal episode, recent trauma or falls, bowel incontinence, bladder incontinence, bowel retention, bladder retention, or any other complaints at this time. Relieving factors: none Exacerbating factors: none Associated symptoms: denies other symptoms Treatments prior to arrival: none Related Data Previous Rx's Medication Instructions Recorded naloxone 4 mg/actuation nasal 4 mg intranasal Q2M PRN opioid 03/08/22 spray (Narcan) overdose #2 ea buprenorphine 2 mg-naloxone 0.5 mg 1 film sublingual BID #10 ea 04/28/22 sublingual film (Suboxone) clonidine HCl 0.1 mg tablet 0.1 mg PO Q6H PRN opiate reversal 06/23/22 48 hours #8 tabs naloxone 4 mg/actuation nasal 4 mg intranasal Q2M PRN opioid 11/04/22 spray (Narcan) overdose #2 ea lorazepam 1 mg tablet 1 mg PO BID PRN anxiety #14 tabs 11/05/22 Allergies Allergy/AdvReac Type Severity Reaction Status Date / Time No Known Allergies Allergy Verified 04/28/22 10:22 Review of Systems Constitutional: Constitutional: Reports no additional constitutional complaints, Denies chills, Denies fever(s) and Denies night sweats Eyes: Eyes: Reports no additional eye complaints, Denies blurry vision, Denies change in vision, Denies diplopia, Denies eye discharge, Denies loss of vision and Denies eye pain ENT: Denies dizziness Cardiovascular: Cardiovascular: Reports no additional cardiovascular complaints, Denies chest pain, Denies lightheadedness, Denies Loss of Cons ciousness and Denies dyspnea Respiratory: Respiratory: Reports no additional respiratory complaints and Denies dyspnea Gastrointestinal: Gastrointestinal: Reports no additional gastrointestinal complaints, Denies abdominal pain, Denies melena, Denies hematochezia, Denies change in bowel habits and Denies change in stool character Genitourinary: Genitourinary: Reports no additional male genitourinary complaints, Denies hematuria, Denies oliguria, Denies difficulty urinating, Denies dysuria, Denies urinary frequency, Denies urinary hesitancy, Denies urinary incontinence and Denies urinary urgency Musculoskeletal: Musculoskeletal: Reports no additional musculoskeletal complaints, Denies numbness and Denies tingling Neurologic: Denies dizziness, Denies loss of vision, Denies numbness and Denies tingling Psychiatric: Psychiatric: Reports no additional psychiatric complaints Endocrine: Endocrine: Reports no additional endocrine complaints Hematologic/Lymphatic: Hematologic/Lymphatic: Reports no additional hematologic/lymphatic complaints Allergic/Immunologic: Allergic/Immunologic: Reports no additional allergic/immunologic complaints PMFSH Past Medical History Attestation statement: The following information was validated with the patient. Source: old records reviewed and nursing notes reviewed Medical History Anxiety No known health problems Social History Social History Alcohol intake: current Alcohol intake frequency: holidays/special occasions only Substance Use Type: Marijuana Advance Directives: No Advance Directives Information Provided: No Physical Exam ED Vital Signs: Vital Signs - 24 hr 12/22/22 15:20 Temperature 97.7 F Pulse Rate 62 Respiratory Rate 16 Blood Pressure 107/62 Pulse Oximetry 100 Oxygen Delivery Method Room Air BMI result Body Mass Index 20.0 Const General: cooperative, no acute distress, alert and awake Nutritional Appearance: well nourished Orientation/consciousness: patient oriented x3 Limitations: no limitations HENMT Head: Yes normal to inspection and Yes atraumatic Ears: hearing grossly normal bilaterally and external ears normal General nose exam: Normal external nose present, no nasal discharge noted and no epistaxis Face and sinus: Yes normal facial exam, No abrasion and No laceration Mouth: Normal oral and palatal mucosa present, no drooling and no muffled voice Eyes General: appearance normal, both eyes and all related structures Periorbital: periorbital findings normal Eyelids: Yes eyelids normal Conjunctivae: conjunctivae normal Pupils: Equal, round and reactive pupils present EOM: EOMs intact bilaterally Neck Neck: Yes normal visual inspection, Yes full ROM and Yes no lymphadenopathy Chest Chest palpation & inspection: normal inspection of the chest Resp Effort & Inspection: normal respiratory effort and able to speak in complete sentences Auscultation: clear to auscultation bilaterally Cardio Rate: regular rate Rhythm: regular rhythm GI Inspection: Yes normal to inspection Palpation (GI): Soft to palpation, not firm, nontender and no guarding Neuro General: patient oriented x3 and moves all extremities Cranial nerves: Yes Equal, round and reactive pupils present Cognition (Neuro): normal cognition Motor exam (neuro): 5/5 motor strength present throughout Sensory Exam: Normal double simultaneous stimulation for sensation Coordination: [id number] test normal Extrem General: Yes normal to inspection, Yes full ROM and Yes capillary refill normal Psych Appearance: grossly normal Mental Status: mental status grossly normal Affect: normal affect Attitude: cooperative Thought process: Normal thought process present Thought content: Normal thought content present Insight: Good insight present (Psych) Medical Decision Making Medical Decision Making MDM Narrative: Patient is a 22 year old assigned male at with a history of opiate abuse / use presenting to the emergency department today after an accidental overdose requiring EMS to provide narcan. Patient's physical exam was unremarkable. I explained my physical exam findings to the patient. I answered all questions asked by the patient. Patient was given take home Narcan and remained in the department under observation for 1 hour. I stressed the importance of the patient taking his medication as prescribed. I stressed the importance of the patient following up with his primary care provider. I stressed the importance of the patient returning to the emergency department immediately if his symptoms were to worsen or if he were to develop any dizziness, shortness of breath, difficulty breathing, chest pain, blurry vision, loss of vision, nausea, vomiting, abdominal pain, fever, chills, back pain, or any other complaints. Patient verbalized agreement and understanding with this treatment plan and discharge. Differential Diagnosis Differential Diagnoses: The differential diagnosis associated with the presentation includes Accidental opiate overdose Opiate use Opiate abuse Independent Historian Clinical information obtained from an independent historian. History obtained from or confirmed by: EMS (EMS provided additional history and confirmed the history provided by the patient. ) Discharge Plan Discharge Clinical Impression: Drug overdose Patient Disposition: Home, Self-Care Instructions: Adult Overdose (ED) Additional Instructions: Follow up with your primary care provider. Return to the emergency department immediately if your symptoms worsen or if you develop any dizziness, shortness of breath, difficulty breathing, chest pain, blurry vision, loss of vision, nausea, vomiting, abdominal pain, fever, chills, back pain, or any other complaints. Prescriptions: No Action naloxone [Narcan] 4 mg/actuation spray,non-aerosol 4 mg intranasal Q2M PRN (Reason: opioid overdose) Qty: 2 0RF Rx Instructions: spray 1 dose into ONE nostril; alternate nostrils w each dose until help arrives clonidine HCl 0.1 mg tablet 0.1 mg PO Q6H PRN (Reason: opiate reversal) 2 Days Qty: 8 0RF naloxone [Narcan] 4 mg/actuation spray,non-aerosol 4 mg intranasal Q2M PRN (Reason: opioid overdose) Qty: 2 0RF Rx Instructions: spray 1 dose into ONE nostril; alternate nostrils w each dose until help arrives lorazepam 1 mg tablet 1 mg PO BID PRN (Reason: anxiety) Qty: 14 0RF buprenorphine-naloxone [Suboxone] 2-0.5 mg film 1 film sublingual BID Qty: 10 0RF Referrals: [facility] [place] [facility]] (Call to establish and follow up with a primary care provider. If you already have a primary care provider, please follow up with them.) [facility] [Provider Group] (Call to establish and follow up with a primary care provider. If you already have a primary care provider, please follow up with them.) [facility] [Provider Group] (Call to establish and follow up with a primary care provider. If you already have a primary care provider, please follow up with them.) Print Language: Surinamese
[2022-12-22 15:20] VITALS: BP 107/62; PULSE 62; RESP 16; TEMP 36.5; O2SAT 100
--- NOTE | 2022-12-22 16:09 | HO.SUDE ---
Met with pt in [facility] after pt presented to ED after accidental overdose. Pt reports he does not believe it was an overdose, believes he crashed from exhaustion after being awake for 2 nights/3days. Pt reports he had 3 bags heroin/fentanyl out to use and passed out before he was able to use the substance. Pt did receive Narcan with positive effect. Pt reports he is currently on methadone, 100 mg daily, at [facility]. Pt reports on days he receives methadone he uses 2-3 bags heroin/fentanyl and on days he does not receive methadone he uses about 5 bags. Pt reports he uses to address anxiety and that if he had a prescription for lorazepam he would not be using fentanyl. Pt reports he has had a rx in the past and it was helpful. Pt is currently being seen by psychiatry at [facility] and trialing medications including Zoloft. Pt reports these have not been helpful and would like a prescription for lorazepam. Pt educated on lorazepam and increase risk of overdose as well as limitations of prescribing from the ED and encouraged pt to follow up with psychiatrist. Pt reports next appt is on 01/02. Pt not interested in other recovery supports at this time. ED provider aware.
[2022-12-22] MEDS: Naloxone HCl Nasal TAKE HOME 4 MG SPRAY 8 MG NOSTRILALT (16:27)
[2022-12-22 16:30] VITALS: BP 118/62; PULSE 93; RESP 16; O2SAT 96
== END 2022-12-22 16:30 | disposition home or self-care (01) ==
PROVIDERS: Emergency Provider Emergency Medicine Emergency Medical Services
DX: T50.901A Poisoning by unspecified drugs, medicaments and biological substances, accidental (unintentional), initial encounter (principal); R40.4 Transient alteration of awareness; F11.20 Opioid dependence, uncomplicated; Y92.9 Unspecified place or not applicable
CPT/HCPCS: 99283; 99284

== ENCOUNTER 2022-12-23 09:52 | Emergency (ER) | payer MEDICAID, SELFPAY ==
[2022-12-23 10:03] VITALS: BP 105/69; PULSE 76; RESP 19; TEMP 36.6; O2SAT 99; BMI 20.7
--- NOTE | 2022-12-23 10:36 | ED_ITS ---
HPI - Anxiety General Chief Complaint: Anxiety Stated Complaint: medication Time Seen by Provider: 12/23/22 10:20 Source: patient Mode of arrival: ambulatory Limitations: no limitations History of Present Illness HPI narrative: 22-year-old male history of opiate use disorder, benzodiazepine overdose presenting to the emergency department for evaluation of anxiety, patient requesting a prescription for anxiety he would like Ativan as needed. He reports he has had this prescription in the past and has worked. He states he is currently on methadone as well and he is afraid he is going to use drugs so he would like something for anxiety. Denies suicidal and homicidal ideation. Denies hallucinations. Denies medical complaints. Related Data Previous Rx's Medication Instructions Recorded naloxone 4 mg/actuation nasal 4 mg intranasal Q2M PRN opioid 03/08/22 spray (Narcan) overdose #2 ea buprenorphine 2 mg-naloxone 0.5 mg 1 film sublingual BID #10 ea 04/28/22 sublingual film (Suboxone) clonidine HCl 0.1 mg tablet 0.1 mg PO Q6H PRN opiate reversal 06/23/22 48 hours #8 tabs naloxone 4 mg/actuation nasal 4 mg intranasal Q2M PRN opioid 11/04/22 spray (Narcan) overdose #2 ea lorazepam 1 mg tablet 1 mg PO BID PRN anxiety #14 tabs 11/05/22 Allergies Allergy/AdvReac Type Severity Reaction Status Date / Time No Known Allergies Allergy Verified 12/23/22 10:02 Review of Systems Review of Systems: Constitutional : No Weight loss, No Fever, No Chills, No Fatigue, No Malaise ENT/Mouth : No sore throat, No Rhinorrhea Eyes: No Eye Pain, No Swelling, No Redness Cardiovascular : No Chest Pain, No SOB, No Dyspnea on Exertion, No Orthopnea, No Edema, No Palpitations Respiratory : No Cough, No Sputum, No Wheezing Gastrointestinal : No Nausea, No Vomiting, No Diarrhea, No Constipation, No abdominal Pain, No Hematochezia, No Melena Genitourinary : No Dysuria, No Urinary Frequency, No Hematuria, Musculoskeletal : No joint pain, No Myalgias, No Joint Swelling Skin : No Skin Lesions, No rash Neuro : No Weakness, No Numbness, No Dizziness, No Headache Psych : No Anxiety/Panic, No Depression All other systems reviewed and are negative Yes all other systems are reviewed and are negative PMFSH Past Medical History Attestation statement: The following information was validated with the patient. Source: old records reviewed and nursing notes reviewed Medical History Anxiety No known health problems Social History Social History Alcohol intake: current Alcohol intake frequency: holidays/special occasions only Substance Use Type: Heroin Physical Exam Vital Signs: Vital Signs: Last Vital Signs Temp 98 F 12/23/22 10:03 Pulse 76 12/23/22 10:03 Resp 19 12/23/22 10:03 BP 105/69 12/23/22 10:03 Pulse Ox 99 12/23/22 10:03 O2 Del Method Room Air 12/23/22 10:03 BMI result Body Mass Index 20.7 Vital signs stable Appearance: Alert.? Oriented X3.? No acute distress.? Head: Normocephalic, atraumatic, no step-offs or deformities Eyes: Pupils equal, round and reactive to light.? Neck: Normal inspection.? Neck supple.? CVS: ? Pulses normal.? Respiratory: No respiratory distress.? Skin: Skin warm and dry.? Normal skin color.? Normal skin turgor.? Neuro: Oriented X 3.? No motor deficit.? No sensory deficit. Medical Decision Making Medical Decision Making [facility] Narrative: 22-year-old male presents requesting Ativan prescription for anxiety. Upon chart review patient has been seen here at this facility multiple times for overdoses he has been seen for opiate overdoses as well as benzodiazepine overdose is. He was last seen for an overdose yesterday, note does not specify exactly what patient use. He personally tells me he has overdose on Klonopin multiple times. Physical exam benign Likely anxiety. Unlikely acute psychosis. No signs of overdose on this visit. Unlikely metabolic derangements or infection. Based off patient history and physical exam I a.m. hesitant to prescribe a controlled substance/benzodiazepine to this patient, he has had multiple prese ntations for overdoses, patient does have a med prescriber who should be the 1 prescribing patient these medications, also patient does report he self medicates with medications from the street which makes me even more hesitant to do this. I did give him a pamphlet for the comprehensive care department for him to call and schedule an appointment. Patient agreeable to this he says he will call today. No suicidal or homicidal ideation, no psychosis no indication for Section 12. Does not want to speak to the care team. Just states he wants something for anxiety. Advised him to follow up with his prescribers. On this visit, I will not be discharging patient home with any medications. Educated patient on diagnosis and treatment plan, answered all question, patient verbalizes understanding. At this time patient will be discharged home, advised to return with new or worsening symptoms. Educated on worrisome signs and symptoms and when to return. At this time I feel comfortable discharge home. Differential Diagnosis Differential Diagnoses: The differential diagnosis associated with the presentation includes Likely anxiety. Unlikely acute psychosis. No signs of overdose on this visit. Unlikely metabolic derangements or infection. Admission/Observation Consideration of admission/observation: Escalation of care including admission/observation considered unlikely Discharge Plan Discharge Clinical Impression: Acute anxiety Patient Disposition: Home, Self-Care Instructions: Anxiety (ED) Additional Instructions: Take your medications as prescribed. If you were prescribed antibiotics today, it is important that you take your medication to their entirety, do not skip any doses, do not finish them early. Follow-up with your primary care provider this week. Return to the emergency department with new or worsening symptoms. Such as fevers, chills, chest pain, shortness of breath, nausea, vomiting, dizziness, headache, vision changes, lethargy, suicidal, homicidal ideation In case of emergency call 911 Please call the comprehensive care team. Prescriptions: No Action naloxone [Narcan] 4 mg/actuation spray,non-aerosol 4 mg intranasal Q2M PRN (Reason: opioid overdose) Qty: 2 0RF Rx Instructions: spray 1 dose into ONE nostril; alternate nostrils w each dose until help arrives clonidine HCl 0.1 mg tablet 0.1 mg PO Q6H PRN (Reason: opiate reversal) 2 Days Qty: 8 0RF naloxone [Narcan] 4 mg/actuation spray,non-aerosol 4 mg intranasal Q2M PRN (Reason: opioid overdose) Qty: 2 0RF Rx Instructions: spray 1 dose into ONE nostril; alternate nostrils w each dose until help arrives lorazepam 1 mg tablet 1 mg PO BID PRN (Reason: anxiety) Qty: 14 0RF buprenorphine-naloxone [Suboxone] 2-0.5 mg film 1 film sublingual BID Qty: 10 0RF Referrals: Physician,None [Primary Care Provider] - 2 days Stand Alone Forms: Work/School Release
== END 2022-12-23 10:48 | disposition home or self-care (01) ==
LOC: HO.ED 10:40
PROVIDERS: Emergency Provider Emergency Medicine
DX: F41.1 Generalized anxiety disorder (principal); F43.0 Acute stress reaction; Z79.899 Other long term (current) drug therapy
CPT/HCPCS: 99283

== ENCOUNTER 2023-03-24 02:24 | Emergency (ER) | payer MEDICAID, SELFPAY ==
--- NOTE | 2023-03-24 | ECG_ITS ---
Test Reason : SUBSTANCE ABUSE Blood Pressure : / mmHG Vent. Rate : 044 BPM Atrial Rate : 044 BPM P-R Int : 166 ms QRS Dur : 086 ms QT Int : 478 ms P-R-T Axes : 066 067 048 degrees QTc Int : 408 ms Marked sinus bradycardia Early repolarization Abnormal ECG When compared with ECG of 04-NOV-2022 05:53, Vent. rate has decreased BY 34 BPM Referred By: Generic ED Physician Electronically Signed By:ELODIA NATARAJAN
[2023-03-24 02:43] VITALS: BP 105/76; BP 112/62; PULSE 60; PULSE 63; RESP 16; TEMP 36.7; O2SAT 98; BMI 19.2
[2023-03-24 02:45] VITALS: BP 105/76; PULSE 60; RESP 16; TEMP 36.7; O2SAT 98
[2023-03-24 03:18] LABS: MANUAL DIFF FLAG NO
[2023-03-24 03:20] LABS: Basophils Percent Auto 0.6 % (0-2); Eosinophils Absolute Auto 0.4 X10*3/uL (0.0-0.4); Eosinophils Percent Auto 5.2 % (0-4); Hematocrit 38.4 % (42.0-52.0); Hemoglobin 13.1 g/dl (14.0-18.0); Imm Gran Abs Auto 0.02 X10*3/uL (0.00-0.03); Imm Gran Pct Auto 0.3 % (0.0-0.4); Lymphocytes Percent Auto 42.9 % (20-40); Mean Corpuscular HGB Conc 34.1 g/dl (31.0-36.0); Mean Corpuscular Hemoglobin 28.6 pg (27.0-33.0); Mean Corpuscular Volume 83.8 fL (80.0-98.0); Mean Platelet Volume 9.4 fL (9.4-12.4); Monocytes Absolute Auto 0.5 X10*3/uL (0.1-1.2); Monocytes Percent Auto 7.3 % (2-11); Neutrophils Percent Auto 43.7 % (45-73); Platelet Count 238 X10*3/uL (160-400); Red Blood Count 4.58 X10*6/uL (4.60-5.80); Red Cell Distribution Width 12.2 % (11.0-16.0); White Blood Count 6.9 X10*3/uL (4.8-10.8)
[2023-03-24 03:21] LABS: Appearance Urine Clear; Color Urine Yellow; Glucose Urine UA Negative (Negative); Leukocyte Esterase Urine Negative (Negative); Nitrite Urine Negative (Negative); PH 5.5 (5.0-9.0); Urine Blood Negative (Negative); Urine Ketones Negative (Negative); Urine Protein Negative (Neg-Trace)
[2023-03-24 03:31] LABS: Amphetamine Screen Urine Not Detected (Not Detect); Barbiturates, Urine Not Detected (Not Detect); Benzodiazepines Screen Urine Not Detected (Not Detect); Cannabinoid Screen Urine POSITIVE (Not Detect); Cocaine Screen Urine POSITIVE (Not Detect); Fentanyl, urine POSITIVE (Not Detect); Opiate Screen Urine POSITIVE (Not Detect); Phencyclidine Screen Urine Not Detected (Not Detect)
[2023-03-24 03:38] LABS: Alanine Aminotransferase 29 U/L (0-40); Albumin Level 4.3 g/dL (3.5-5.0); Alkaline Phosphatase 70 U/L (39-117); Anion Gap 13 (12-20); Aspartate Amino Transferase 29 U/L (5-37); Bilirubin Total 0.7 mg/dL (0.0-1.0); Blood Urea Nitrogen 9 mg/dL (9-16); Calcium 9.7 mg/dL (8.4-10.2); Carbon Dioxide 28 mmol/L (22-29); Chloride 108 mmol/L (96-108); Creatinine Clr Calc Pharmacy 111.4; Estimated Glomerular Filt Rate > 60; Ethanol < 10 mg/dL; Glucose Random 86 mg/dL (60-115); Potassium 4.7 mmol/L (3.3-5.1); Sodium 144 mmol/L (135-145); Total Protein 6.9 g/dL (6.5-8.0)
--- NOTE | 2023-03-24 04:59 | PC.NURSE ---
Pt noted to have decreased HR (40's) and RR around 8-10. O2 sat is good at 97%. Pt is sleepy but wakes up immediately to voice, A&Ox4, with no complaints. I tolod pt his HR is low and he said that it happens like that sometimes. Provider aware, stated Pt is young . Pt is on [employer] combination [employer] and we will continue to monitor patient.
[2023-03-24 05:00] VITALS: BP 91/54; PULSE 40; RESP 10; TEMP 36.8; O2SAT 95
--- NOTE | 2023-03-24 05:37 | PC.NURSE ---
Pt changed over and belongings brought to decon. Pt is sitting up, A&Ox4, GCS 15, with cool, dry skin. Pt was given crackers and cheese, per request. Pt is calm and cooperative.
--- NOTE | 2023-03-24 05:47 | PC.NURSE ---
Spoke with pt's mother who is concerned for pt. She stated he has overdosed before, requiring narcan and CPR and wants him to talk to psychiatry/recovery. I explained that pt is over 17 and A&O so I cannot force him to talk to psych but I will discuss the option with the pt and provider. Pt is currently asking when he can go home.
[2023-03-24 05:54] VITALS: PULSE 57; RESP 10; O2SAT 97
--- NOTE | 2023-03-24 06:22 | ED.GENADULT ---
HPI - General Adult General Chief complaint: ETOH/Substance Use Stated complaint: SUBSTANCE ABUSE Time Seen by Provider: 03/24/23 06:21 Source: patient Mode of arrival: ambulatory Limitations: no limitations History of Present Illness HPI narrative: Patient is a 22-year-old male with history of polysubstance use currently on methadone presenting to the emergency department via EMS because his mother was concerned with his respirations overnight. Patient initially admitted to snorting 4 bags of heroin around 19:30 last night, but is currently denying drug use. Denies suicidal ideation and denies any attempt to harm himself. He states that his methadone dose was recently decreased and that he has been having withdrawal symptoms. Reports friend recently passed within the last few weeks due to overdose. Mother spoke with RN reporting concern for patient's drug use/safety. Patient states he is not interested in speaking with addiction medicine as he is currently on methadone. Denies any current physical complaints. States he is willing to take today's methadone dose if possible. MD complaint: drug overdose Onset (ago): hour(s) Treatments prior to arrival: none Related Data Previous Rx's Medication Instructions Recorded naloxone 4 mg/actuation nasal 4 mg intranasal Q2M PRN opioid 03/08/22 spray (Narcan) overdose #2 ea buprenorphine 2 mg-naloxone 0.5 mg 1 film sublingual BID #10 ea 04/28/22 sublingual film (Suboxone) clonidine HCl 0.1 mg tablet 0.1 mg PO Q6H PRN opiate reversal 06/23/22 48 hours #8 tabs naloxone 4 mg/actuation nasal 4 mg intranasal Q2M PRN opioid 11/04/22 spray (Narcan) overdose #2 ea lorazepam 1 mg tablet 1 mg PO BID PRN anxiety #14 tabs 11/05/22 Allergies Allergy/AdvReac Type Severity Reaction Status Date / Time No Known Allergies Allergy Verified 12/23/22 10:02 Review of Systems Review of Systems: As per HPI. Yes all other systems are reviewed and are negative Constitutional: Constitutional: Reports as per HPI [facility] Past Medical History Onset Date is defined in the Problem List Problems that require an onset date and time if occurred within 24 hrs of arrival to the ED Aortic Dissection and Rupture; Neurologic impairment; Cardiopulmonary Arrest; Endotracheal Intubation; Insertion or Replacement of Mechanical Circulatory Assist Device Medical History Anxiety No known health problems Social History Social History Alcohol intake: current Alcohol intake frequency: a few times a week Alcohol type: beer Smoked in Last 30 Days: Yes Use of substances other than those prescribed or required for medical reasons: Yes Substance Use Type: Heroin and Marijuana Substance Use Frequency: Daily Advance Directives: No Advance Directives Information Provided: No Physical Exam ED Vital Signs: Vital Signs - 24 hr 03/24/23 02:43 03/24/23 02:45 03/24/23 05:00 Temperature 98.1 F 98.1 F 98.2 F Pulse Rate 60 60 40 L Respiratory Rate 16 16 10 L Blood Pressure 105/76 105/76 91/54 L Pulse Oximetry 98 98 95 Oxygen Delivery Method Room Air Room Air Room Air 03/24/23 05:54 Temperature Pulse Rate 57 Respiratory Rate 10 L Blood Pressure Pulse Oximetry 97 Oxygen Delivery Method Room Air BMI result Body Mass Index 19.2 Vital signs have been reviewed and appear to be correct. Blood pressure normal. Heart rate bradycardic while asleep, increases to normal rate when awake. Respiratory rate normal. Temperature normal. Oxygen saturation normal. Const General: cooperative, healthy appearing and no acute distress Orientation/consciousness: oriented to person, oriented to place, oriented to time and patient oriented x3 Limitations: no limitations [facility] Head: Yes normocephalic and Yes atraumatic Ears: external ears normal General nose exam: Normal external nose present Face and sinus: Yes face symmetric Mouth: oropharynx normal and moist mucous membranes Throat: Yes uvula midline Eyes Pupils: Equal, round and reactive pupils present Neck Neck: Yes normal visual inspection and Yes supple Resp Effort & Inspection: normal respiratory effort and able to speak in complete sentences Auscultation: clear to auscultation bilaterally Cardio Rate: regular rate Rhythm: regular rhythm Heart sounds: S1 normal heart sound present and S2 normal heart sound present GI Palpation (GI): Soft to palpation and nontender Auscultation: normoactive bowel sounds General: Yes no CVA tenderness Back/Spine/Pelvis Back: no CVA tenderness Skin General skin exam: elasticity normal and turgor normal Neuro General: oriented to person, oriented to place, oriented to time, patient oriented x3, moves all extremities, no focal motor deficits and CN's II-XI intact bilaterally Cranial nerves: Yes Equal, round and reactive pupils present Cognition (Neuro): normal cognition Extrem General: Yes full ROM, Yes no pedal edema and Yes no calf tenderness Psych Mental Status: mental status grossly normal Affect: normal affect Thought process: Normal thought process present Medications Administered Discontinued Medications Generic Name Dose Route Start Last Admin Trade Name Ambrocio PRN Reason Stop Dose Admin Methadone HCl 80 mg 03/24/23 06:57 03/24/23 07:28 Methadone Hcl 20 Mg/2 Ml Oral.Conc PO 03/24/23 06:58 80 mg ONCE ONE Administration Naloxone HCl 8 mg 03/24/23 07:08 03/24/23 07:28 Naloxone Hcl Nasal Take Home 4 Mg [place] NOSTRILALT 03/24/23 07:09 8 mg ONCE ONE Administration Medical Decision Making Medical Decision Making [facility] Narrative: Patient is a 22-year-old male with history of polysubstance use currently on methadone presenting to the emergency department via EMS because his mother was concerned with his respirations overnight for which he did NOT receive Narcan. On exam patient is awake, A+Ox3, VS WNL, afebrile, normal neurological exam without focal deficits, physical exam findings as above. Given reported symptoms and physical exam findings, initial differential includes opioid use disorder, accidental opioid overdose, opioid use. Labs notable for urine drug screen positive for opiates, fentanyl, cocaine, and marijuana. Patient noted to have marked bradycardic on EKG while asleep, HR increases to normal rate while awake. Was able to verify methadone dose with clinic and medicate patient here prior to discharge. Patient discharged home with Narcan and instructions for use. Return precautions discussed. Patient verbalized understanding of and agreement with plan. Differential Diagnosis Differential Diagnoses: The differential diagnosis associated with the presentation includes As per [facility]. Consult Healthcare Provider Offered consult with addiction medicine which patient declined. Lab Data [facility] Lab Attestation statement: I reviewed the patient's lab results. As per MDM. 03/24/23 03:12 03/24/23 03:12 Labs: Lab Results 03/24/23 Range/Units 03:12 WBC 6.9 (4.8-10.8) X10*3/uL RBC 4.58 L (4.60-5.80) X10*6/uL Hgb 13.1 L (14.0-18.0) g/dl Hct 38.4 L (42.0-52.0) % MCV 83.8 (80.0-98.0) fL MCH 28.6 (27.0-33.0) pg MCHC 34.1 (31.0-36.0) g/dl RDW 12.2 (11.0-16.0) % Plt Count 238 (160-400) X10*3/uL MPV 9.4 (9.4-12.4) fL Immature Gran % (Auto) 0.3 (0.0-0.4) % Neut % (Auto) 43.7 L (45-73) % Lymph % (Auto) 42.9 H (20-40) % Coal % (Auto) 7.3 (2-11) % Eos % (Auto) 5.2 H (0-4) % Baso % (Auto) 0.6 (0-2) % Lymph # (Auto) 3.0 (1.2-4.9) X10*3/uL Coal # (Auto) 0.5 (0.1-1.2) X10*3/uL Eos # (Auto) 0.4 (0.0-0.4) X10*3/uL Baso # (Auto) 0.0 (0.0-0.2) X10*3/uL Abs Immat Gran (auto) 0.02 (0.00-0.03) X10*3/uL Absolute Neuts (auto) 3.0 (2.0-8.3) x10*3/uL Absolute Nucleated RBC 0.000 (0.0-0.012) X10*3/uL Nucleated RBC % (auto) 0.0 (0.0-0.2) /100WBC Sodium 144 (135-145) mmol/L Potassium 4.7 (3.3-5.1) mmol/L Chloride 108 (96-108) mmol/L Carbon Dioxide 28 (22-29) mmol/L Anion Gap 13 (12-20) BUN 9 (9-16) mg/dL Creatinine 0.86 (0.5-1.4) mg/dL Estim Creat Clear Calc 111.4 Estimated GFR > 60 Random Glucose 86 (60-115) mg/dL Calcium 9.7 D (8.4-10.2) mg/dL Total Bilirubin 0.7 (0.0-1.0) mg/dL AST 29 (5-37) U/L ALT 29 (0-40) U/L Alkaline Phosphatase 70 (39-117) U/L Total Protein 6.9 (6.5-8.0) g/dL Albumin 4.3 (3.5-5.0) g/dL Urine Color Yellow Urine Appearance Clear Urine pH 5.5 (5.0-9.0) Ur Specific [place] 1.020 (1.005-1.025) Urine Protein Negative (Neg-Trace) mg/dL Urine Glucose (UA) Negative (Negative) mg/dL Urine Ketones Negative (Negative) mg/dL Urine Blood Negative (Negative) Urine Nitrite Negative (Negative) Ur Leukocyte Esterase Negative (Negative) Urine Opiates Screen POSITIVE H (Not Detect) Urine Fentanyl Screen POSITIVE H (Not Detect) Ur Barbiturates Screen Not Detected (Not Detect) Ur Phencyclidine Scrn Not Detected (Not Detect) Ur Amphetamines Screen Not Detected (Not Detect) U Benzodiazepines Scrn Not Detected (Not Detect) Urine Cocaine Screen POSITIVE H (Not Detect) U Marijuana (THC) Screen POSITIVE H (Not Detect) Ethyl Alcohol < 10 mg/dL Independent Interpretation I performed an independent interpretation of an: EKG (sinus bradycardia rate 44, normal SD and QT intervals) Independent Historian Clinical information obtained from an independent historian. History obtained from or confirmed by: Parent External Record Review External record reviewed: Inpatient record, Office record and Outpatient record Prescription Management I considered prescription management with: Other Chronic Conditions Patient?s care impacted by: Other (polysubstance use) Discharge Plan Discharge Clinical Impression: Drug overdose Patient Disposition: Home, Self-Care Instructions: Adult Overdose (ED) Additional Instructions: You were discharged home with Narcan, please keep this on you at all times. Return to the emergency department if you develop chest pain, difficulty breathing, changes in vision, persistent vomiting, or any other complaints. Prescriptions: No Action naloxone [Narcan] 4 mg/actuation spray,non-aerosol 4 mg intranasal Q2M PRN (Reason: opioid overdose) Qty: 2 0RF Rx Instructions: spray 1 dose into ONE nostril; alternate nostrils w each dose until help arrives clonidine HCl 0.1 mg tablet 0.1 mg PO Q6H PRN (Reason: opiate reversal) 2 Days Qty: 8 0RF naloxone [Narcan] 4 mg/actuation spray,non-aerosol 4 mg intranasal Q2M PRN (Reason: opioid overdose) Qty: 2 0RF Rx Instructions: spray 1 dose into ONE nostril; alternate nostrils w each dose until help arrives lorazepam 1 mg tablet 1 mg PO BID PRN (Reason: anxiety) Qty: 14 0RF buprenorphine-naloxone [Suboxone] 2-0.5 mg film 1 film sublingual BID Qty: 10 0RF
--- NOTE | 2023-03-24 07:02 | HE.PHANOTE ---
RE: methadone Last dose 80mg on 03/23/23 @1157 [facility] [place]
[2023-03-24] MEDS: Naloxone HCl Nasal TAKE HOME 4 MG SPRAY 8 MG NOSTRILALT (07:28)
[2023-03-24] MEDS: methADONE HCl 20 MG/2 ML ORAL.CONC 80 MG PO (07:28)
== END 2023-03-24 10:52 | disposition home or self-care (01) ==
PROVIDERS: Emergency Provider Emergency Medicine
DX: T40.1X1A Poisoning by heroin, accidental (unintentional), initial encounter (principal); R00.1 Bradycardia, unspecified; F11.20 Opioid dependence, uncomplicated; Y92.019 Unspecified place in single-family (private) house as the place of occurrence of the external cause
CPT/HCPCS: 36415; 80053; 80307; 81003; 85025; 93005; 99284; 99285

== ENCOUNTER → 2023-03-24 02:52 | Outpatient (BNV) | payer MEDICAID, SELFPAY | PROVIDERS: Emergency Provider Emergency Medicine; Visit Provider Internal Medicine | DX: R00.1 Bradycardia, unspecified (principal) | CPT/HCPCS: 93010 ==

== ENCOUNTER 2023-09-08 21:53 | Emergency (ER) | payer MEDICAID, SELFPAY ==
--- NOTE | 2023-09-08 | ECG_ITS ---
Test Reason : overdose Blood Pressure : / mmHG Vent. Rate : 039 BPM Atrial Rate : 039 BPM P-R Int : 178 ms QRS Dur : 098 ms QT Int : 518 ms P-R-T Axes : 062 069 050 degrees QTc Int : 416 ms Marked sinus bradycardia Early repolarization Abnormal ECG When compared with ECG of 24-MAR-2023 02:52, No significant change was found Referred By: Issac Licea Electronically Signed By:ELODIA NATARAJAN
[2023-09-08 22:15] VITALS: BP 108/50; PULSE 52; O2SAT 95
[2023-09-08 22:19] VITALS: BP 83/63; PULSE 46; RESP 12; TEMP 36.6; O2SAT 96; BMI 17.7
[2023-09-08 22:24] VITALS: BMI 18.2
[2023-09-08 22:27] VITALS: BP 83/63; PULSE 46; RESP 12; TEMP 36.6; O2SAT 96
--- NOTE | 2023-09-08 22:29 | ED.OVERDOSE ---
HPI - Overdose General Chief Complaint: Overdose Stated Complaint: OD PER EMS Time Seen by Provider: 09/08/23 22:28 Source: patient Mode of arrival: ambulatory Limitations: no limitations History of Present Illness ED Provider: ruddy MCCOY Narrative: Patient's history of substance abuse uses heroin about a bundle a day for long time today he used 2 bags likely fentanyl was found unresponsive happening and pulseless at home the parents 4 mg Narcan was given CPR is at started upon PD arrival another 4 mg Narcan given at the time of arrival patient is alert and awake noted to have blood pressure 83/63 with heart rate of 46 patient does have bradycardia all the time denies any dizziness no vomiting no chest pain no use of any other drugs Related Data Previous Rx's ?Medication ?Instructions ?Recorded naloxone 4 mg/actuation nasal 4 mg intranasal Q2M PRN opioid 03/08/22 spray (Narcan) overdose #2 ea buprenorphine 2 mg-naloxone 0.5 mg 1 film sublingual BID #10 ea 04/28/22 sublingual film (Suboxone) clonidine HCl 0.1 mg tablet 0.1 mg PO Q6H PRN opiate reversal 06/23/22 48 hours #8 tabs naloxone 4 mg/actuation nasal 4 mg intranasal Q2M PRN opioid 11/04/22 spray (Narcan) overdose #2 ea lorazepam 1 mg tablet 1 mg PO BID PRN anxiety #14 tabs 11/05/22 Allergies Allergy/AdvReac Type Severity Reaction Status Date / Time No Known Allergies Allergy Verified 09/08/23 22:24 Review of Systems Review of Systems: Yes all other systems are reviewed and are negative PMFSH Past Medical History Medical History Anxiety No known health problems Social History Social History Alcohol intake: current Alcohol intake frequency: holidays/special occasions only Alcohol type: beer Smoked in Last 30 Days: Yes Use of substances other than those prescribed or required for medical reasons: Yes Substance Use Type: Crack/Cocaine and Heroin Advance Directives: No Advance Directives Information Provided: No Do you have a plan to hurt others: No Plan Physical Exam Vital Signs: Vital Signs: Last Vital Signs Temp 97.8 F 09/09/23 05:23 Pulse 48 L 09/09/23 05:23 Resp 12 09/09/23 05:23 BP 103/66 09/09/23 05:23 Pulse Ox 100 09/09/23 05:23 O2 Del Method Room Air 09/09/23 05:23 BMI result Body Mass Index 18.2 Appearance: Alert. Oriented X3. No acute distress. Eyes: PERRLA, No Nystagmus ENT: Pharynx normal. Oral Mucosa moist Neck: Normal inspection. Neck supple. CVS: Bradycardic no murmur rub or gallop Pulses normal. Respiratory: No respiratory distress. Equal air entry bilateral, no wheezing/rales/rhonchi Abdomen: Soft and nontender. Bowel sounds are present, no mass palpable, no CVA tenderness Skin: Skin warm and dry. Normal skin color. Normal skin turgor. Extremities: No lower extremity edema. No calf tenderness Neuro: Oriented X 3. No motor deficit. Medications Administered Discontinued Medications Generic Name Dose Route Start Last Admin Trade Name Freq PRN Reason Stop Dose Admin Atropine Sulfate 0.5 mg 09/09/23 00:02 09/09/23 00:07 Atropine Sulfate 1 Mg/10 Ml Syringe IVPUSH 09/09/23 00:03 0.5 mg ONCE ONE Administration Sodium Chloride 1,000 mls @ 999 mls/hr 09/08/23 22:45 09/09/23 00:10 Ns IV 09/08/23 23:45 Infused .Q1H1M YASHIRA Infusion Medical Decision Making Medical Decision Making [facility] Narrative: Patient came here as opiate overdose responded to Narcan had bradycardia during stay as in the past which improved after IV hydration and with time, patient asymptomatic ambulatory in the ER During stay in the ER heart rate improved fluctuating between 50 and 60 with blood pressure improved Lab Data [facility] Lab Attestation statement: I reviewed the patient's lab results. 09/08/23 22:49 09/08/23 22:49 Labs: Lab Results 09/08/23 09/09/23 Range/Units 22:49 05:37 WBC 6.9 (4.8-10.8) X10*3/uL RBC 4.11 L (4.60-5.80) X10*6/uL Hgb 12.1 L (14.0-18.0) g/dl Hct 35.2 L (42.0-52.0) % MCV 85.6 (80.0-98.0) fL MCH 29.4 (27.0-33.0) pg MCHC 34.4 (31.0-36.0) g/dl RDW 12.5 (11.0-16.0) % Plt Count 198 (160-400) X10*3/uL MPV 10.3 (9.4-12.4) fL Immature Gran % (Auto) 0.3 (0.0-0.4) % Neut % (Auto) 57.0 (45-73) % Lymph % (Auto) 26.7 (20-40) % Monroe % (Auto) 7.8 (2-11) % Eos % (Auto) 7.3 H (0-4) % Baso % (Auto) 0.9 (0-2) % Lymph # (Auto) 1.8 (1.2-4.9) X10*3/uL Monroe # (Auto) 0.5 (0.1-1.2) X10*3/uL Eos # (Auto) 0.5 H (0.0-0.4) X10*3/uL Baso # (Auto) 0.1 (0.0-0.2) X10*3/uL Abs Immat Gran (auto) 0.02 (0.00-0.03) X10*3/uL Absolute Neuts (auto) 3.9 (2.0-8.3) x10*3/uL Absolute Nucleated RBC 0.000 (0.0-0.012) X10*3/uL Nucleated RBC % (auto) 0.0 (0.0-0.2) /100WBC Sodium 144 (135-145) mmol/L Potassium 3.6 D (3.3-5.1) mmol/L Chloride 111 H (96-108) mmol/L Carbon Dioxide 25 (22-29) mmol/L Anion Gap 12 (12-20) BUN 15 (9-16) mg/dL Creatinine 0.88 (0.5-1.4) mg/dL Estim Creat Clear Calc 102.5 Estimated GFR > 60 Random Glucose 110 (60-115) mg/dL Calcium 8.3 L D (8.4-10.2) mg/dL Total Bilirubin 0.8 (0.0-1.0) mg/dL AST 22 (5-37) U/L ALT 22 (0-40) U/L Alkaline Phosphatase 64 (39-117) U/L Total Protein 6.3 L (6.5-8.0) g/dL Albumin 4.0 (3.5-5.0) g/dL Urine Color Yellow Urine Appearance Clear Urine pH 5.5 (5.0-9.0) Ur Specific [place] 1.020 (1.005-1.025) Urine Protein Negative (Neg-Trace) mg/dL Urine Glucose (UA) Negative (Negative) mg/dL Urine Ketones Negative (Negative) mg/dL Urine Blood Negative (Negative) Urine Nitrite Negative (Negative) Ur Leukocyte Esterase Negative (Negative) Urine Opiates Screen POSITIVE H (Not Detect) Ur Buprenorphine Scrn Not Detected (Not Detect) ng/mL Ur Oxycodone Screen Not Detected (Not Detect) ng/mL Urine Methadone Screen Positive H (Not Detect) ng/mL Urine Fentanyl Screen POSITIVE H (Not Detect) Ur Barbiturates Screen Not Detected (Not Detect) Ur Phencyclidine Scrn Not Detected (Not Detect) Ur Amphetamines Screen Not Detected (Not Detect) U Benzodiazepines Scrn Not Detected (Not Detect) Urine Cocaine Screen POSITIVE H (Not Detect) U Marijuana (THC) Screen POSITIVE H (Not Detect) Ethyl Alcohol < 10 mg/dL Independent Interpretation I performed an independent interpretation of an: EKG Interpretation: Sinus bradycardia heart rate 38 beats per minute normal interval normal axis early repolarization changes no acute ischemia Discharge Plan Discharge Clinical Impression: Opioid use disorder Patient Disposition: Home, Self-Care Instructions: Opioid Use Disorder (ED) Additional Instructions: Stop using drugs Follow with detox Prescriptions: No Action naloxone [Narcan] 4 mg/actuation spray,non-aerosol 4 mg intranasal Q2M PRN (Reason: opioid overdose) Qty: 2 0RF Rx Instructions: spray 1 dose into ONE nostril; alternate nostrils w each dose until help arrives clonidine HCl 0.1 mg tablet 0.1 mg PO Q6H PRN (Reason: opiate reversal) 2 Days Qty: 8 0RF naloxone [Narcan] 4 mg/actuation spray,non-aerosol 4 mg intranasal Q2M PRN (Reason: opioid overdose) Qty: 2 0RF Rx Instructions: spray 1 dose into ONE nostril; alternate nostrils w each dose until help arrives lorazepam 1 mg tablet 1 mg PO BID PRN (Reason: anxiety) Qty: 14 0RF buprenorphine-naloxone [Suboxone] 2-0.5 mg film 1 film sublingual BID Qty: 10 0RF Interventions: ED Discharge Assessment Last Done: 09/09/23 05:23 Discharge Date/Time: 09/09/23 05:43 Print Language: Greenlandic
--- NOTE | 2023-09-08 22:42 | MHC.EDTECH ---
Clothes in decon
[2023-09-08 22:52] LABS: MANUAL DIFF FLAG NO
[2023-09-08 22:56] LABS: Basophils Absolute Auto 0.1 X10*3/uL (0.0-0.2); Basophils Percent Auto 0.9 % (0-2); Eosinophils Absolute Auto 0.5 X10*3/uL (0.0-0.4); Eosinophils Percent Auto 7.3 % (0-4); Hematocrit 35.2 % (42.0-52.0); Hemoglobin 12.1 g/dl (14.0-18.0); Imm Gran Abs Auto 0.02 X10*3/uL (0.00-0.03); Imm Gran Pct Auto 0.3 % (0.0-0.4); Lymphocytes Absolute Auto 1.8 X10*3/uL (1.2-4.9); Lymphocytes Percent Auto 26.7 % (20-40); Mean Corpuscular HGB Conc 34.4 g/dl (31.0-36.0); Mean Corpuscular Hemoglobin 29.4 pg (27.0-33.0); Mean Corpuscular Volume 85.6 fL (80.0-98.0); Mean Platelet Volume 10.3 fL (9.4-12.4); Monocytes Absolute Auto 0.5 X10*3/uL (0.1-1.2); Monocytes Percent Auto 7.8 % (2-11); Neutrophils Absolute Auto 3.9 x10*3/uL (2.0-8.3); Platelet Count 198 X10*3/uL (160-400); Red Blood Count 4.11 X10*6/uL (4.60-5.80); Red Cell Distribution Width 12.5 % (11.0-16.0); White Blood Count 6.9 X10*3/uL (4.8-10.8)
[2023-09-08] MEDS: 0.9 % Sodium Chloride 1,000 ML 999 ML IV (23:08)
[2023-09-08 23:09] LABS: Alanine Aminotransferase 22 U/L (0-40); Alkaline Phosphatase 64 U/L (39-117); Anion Gap 12 (12-20); Aspartate Amino Transferase 22 U/L (5-37); Bilirubin Total 0.8 mg/dL (0.0-1.0); Blood Urea Nitrogen 15 mg/dL (9-16); Calcium 8.3 mg/dL (8.4-10.2); Carbon Dioxide 25 mmol/L (22-29); Chloride 111 mmol/L (96-108); Creatinine Clr Calc Pharmacy 102.5; Estimated Glomerular Filt Rate > 60; Glucose Random 110 mg/dL (60-115); Potassium 3.6 mmol/L (3.3-5.1); Sodium 144 mmol/L (135-145); Total Protein 6.3 g/dL (6.5-8.0)
[2023-09-09] MEDS: Atropine Sulfate 1 MG/10 ML SYRINGE 0.5 MG IVPUSH (00:07)
--- NOTE | 2023-09-09 00:12 | PC.NURSE ---
Pt medicated per may. Provider Ava notified and aware, pts rr 6, HR in the high 40's. Plan of care ongoing.
[2023-09-09 00:33] VITALS: BP 146/94; PULSE 71; RESP 12; TEMP 36.5; O2SAT 97
--- NOTE | 2023-09-09 01:52 | PC.NURSE ---
Pt requested and given food and drink Plan of care ongoing.
[2023-09-09 02:23] VITALS: BP 93/57; PULSE 50; RESP 12; TEMP 36.8; O2SAT 100
[2023-09-09 04:17] VITALS: BP 103/66; PULSE 48; RESP 12; TEMP 36.6; O2SAT 100
[2023-09-09 05:23] VITALS: BP 103/66; PULSE 48; RESP 12; TEMP 36.6; O2SAT 100
--- NOTE | 2023-09-09 05:42 | PC.NURSE ---
UA Collected and sent. Plan of care ongoing..
[2023-09-09 05:44] LABS: Appearance Urine Clear; Color Urine Yellow; Glucose Urine UA Negative (Negative); Leukocyte Esterase Urine Negative (Negative); Nitrite Urine Negative (Negative); PH 5.5 (5.0-9.0); Urine Blood Negative (Negative); Urine Ketones Negative (Negative); Urine Protein Negative (Neg-Trace)
[2023-09-09 05:54] LABS: Amphetamine Screen Urine Not Detected (Not Detect); Barbiturates, Urine Not Detected (Not Detect); Benzodiazepines Screen Urine Not Detected (Not Detect); Buprenorphine Scr Not Detected (Not Detect); Cannabinoid Screen Urine POSITIVE (Not Detect); Cocaine Screen Urine POSITIVE (Not Detect); Fentanyl, urine POSITIVE (Not Detect); Methadone Screen, Urine Positive (Not Detect); Opiate Screen Urine POSITIVE (Not Detect); Oxycodone Screen Urine Not Detected (Not Detect); Phencyclidine Screen Urine Not Detected (Not Detect)
[2023-09-09 05:54] LABS: Ethanol < 10 mg/dL
== END 2023-09-09 05:43 | disposition home or self-care (01) ==
PROVIDERS: Emergency Provider Internal Medicine; PCP Internal Medicine
DX: F11.20 Opioid dependence, uncomplicated (principal); R00.1 Bradycardia, unspecified; F19.10 Other psychoactive substance abuse, uncomplicated; F41.9 Anxiety disorder, unspecified; Z79.899 Other long term (current) drug therapy
CPT/HCPCS: 36415; 80053; 80307; 81003; 85025; 93005; 96361; 96374; 99285; J0461

== ENCOUNTER → 2023-09-08 23:02 | Outpatient (BNV) | payer MEDICAID, SELFPAY | PROVIDERS: Emergency Provider Internal Medicine; PCP Internal Medicine; Visit Provider Internal Medicine | DX: R00.1 Bradycardia, unspecified (principal); R94.31 Abnormal electrocardiogram [ECG] [EKG] | CPT/HCPCS: 93010 ==

== ENCOUNTER 2023-10-15 09:51 | Emergency (ER) | payer MEDICAID, SELFPAY ==
[2023-10-15 09:53] VITALS: BP 124/79; PULSE 72; RESP 20; TEMP 37.2; O2SAT 97; BMI 19.8
--- NOTE | 2023-10-15 10:26 | ED.DENTAL ---
HPI - Dental/Oral General Chief complaint: Dental/Oral Stated complaint: dental pain Time Seen by Provider: 10/15/23 10:21 Source: patient Mode of arrival: ambulatory Limitations: no limitations History of Present Illness HPI Narrative: Patient is a 23 old male who presents emergency department for evaluation of dental pain for the past week. Has used Orajel, Tylenol, ibuprofen without much improvement. He additionally tried to rub Latrell Jacob on the area but he did not receive any relief. States that he thought to go and purchase and cocaine to rub onto the tooth as well but he opted not to. Denies any redness swelling to the gums, pus-like discharge or foul taste to the mouth. States he has not followed with a dentist for this. No associated neck pain, fevers, chills, chest pain shortness of breath. Location: Tooth # (Interdental base between 14-15 and mid upper 16) Related Data Previous Rx's ?Medication ?Instructions ?Recorded naloxone 4 mg/actuation nasal 4 mg intranasal Q2M PRN opioid 03/08/22 spray (Narcan) overdose #2 ea buprenorphine 2 mg-naloxone 0.5 mg 1 film sublingual BID #10 ea 04/28/22 sublingual film (Suboxone) clonidine HCl 0.1 mg tablet 0.1 mg PO Q6H PRN opiate reversal 06/23/22 48 hours #8 tabs naloxone 4 mg/actuation nasal 4 mg intranasal Q2M PRN opioid 11/04/22 spray (Narcan) overdose #2 ea lorazepam 1 mg tablet 1 mg PO BID PRN anxiety #14 tabs 11/05/22 chlorhexidine gluconate 0.12 % 15 ml buccal DAILY #118 mL 10/15/23 mouthwash Allergies Allergy/AdvReac Type Severity Reaction Status Date / Time No Known Allergies Allergy Verified 10/15/23 09:55 Review of Systems Review of Systems: Yes all other systems are reviewed and are negative PMFSH Past Medical History Attestation statement: The following information was validated with the patient. Source: old records reviewed Medical History Anxiety No known health problems Social History Social History Alcohol intake: current Alcohol intake frequency: holidays/special occasions only Alcohol type: beer Substance Use Type: Crack/Cocaine and Heroin Advance Directives: No Advance Directives Information Provided: Yes Do you have a plan to hurt others: No Plan Physical Exam Vital Signs: Vital Signs: Last Vital Signs Temp 98.9 F 10/15/23 09:53 Pulse 72 10/15/23 09:53 Resp 20 10/15/23 09:53 BP 124/79 10/15/23 09:53 Pulse Ox 97 10/15/23 09:53 O2 Del Method Room Air 10/15/23 09:53 BMI result Body Mass Index 19.8 Appearance: Alert. Oriented X3. No acute distress. Head: Normal external exam. Normocephalic. Atraumatic. Eyes: PERRLA. EOMI. Conjunctiva and sclera normal. Eyelids normal. ENT: EAC normal. TM's Normal. Pharynx normal. Uvula midline. Moist mucous membranes.? ?No trismus noted.? No drooling noted.? No muffled voice noted. Dentition:? Gingival within normal limits.? No fluctuance.? Not consistent with peritonsillar abscess. Not consistent with dental abscess.? No salivary duct obstruction noted. Neck: Normal inspection. Neck supple. FROM. No adenopathy. Thyroid Normal. No meningeal signs. No neck mass noted.? Trachea midline. CVS: Normal heart rate and rhythm. Heart sound normal. No murmurs noted. Pulses normal throughout. Respiratory: No respiratory distress. Painless inspiration. Breath sounds normal. No wheezes/rales/rhonchi noted. Chest nontender. ?No accessory muscle usage noted or decreased air movement noted. Back:? Full range of motion noted. Skin: Skin warm and dry.? Normal skin color.? Normal skin turgor. No rashes/lesions/lacerations noted. Extremities: Extremities exhibit normal range of motion.? Extremities nontender. Neuro: Oriented X 3.? No motor deficit.? No sensory deficit.? Reflexes normal. Medical Decision Making Medical Decision Making MDM Narrative: Patient is a 23-year-old male who presents emergency department for evaluation of dental pain as per HPI. There is a scant area of discoloration to the mid upper tooth #16 concerning for possible small dental sam, which may be resulting in his pain. There is no obvious fluctuance or erythema to the gingiva to suggest an abscess. He was provided with all a cane in the emergency department, chlorhexidine mouthwash and advised to follow up accordingly with dental provider in additional acetaminophen/ibuprofen. Stable for discharge. Differential Diagnosis Differential Diagnoses: The differential diagnosis associated with the presentation includes (See narrative above) External Record Review External record reviewed: Outpatient record Prescription Management I considered prescription management with: Pain Medication and Antibiotic (Does not appear to have acute infection) Discharge Plan Discharge Clinical Impression: Toothache Patient Disposition: Home, Self-Care Instructions: Toothache (ED) Additional Instructions: Call or visit any of the clinics below to establish with a dentist: [facility] [address] [place] [address] [facility] [address] [facility], [address] [address] [facility] [address] [place] [address] [facility] [address] [place] [address] [place] [address] [place] [address] You can take ibuprofen 200 mg, 3 tablets (600mg) every 6-8 hours as needed for pain, in addition to Tylenol 500 mg, 2 tablets (1,000mg) every 4-6 hours as needed for pain, but not to exceed 3 doses daily (3,000mg).? Prescriptions: New chlorhexidine gluconate 0.12 % mouthwash 15 ml buccal DAILY Qty: 118 0RF No Action naloxone [Narcan] 4 mg/actuation spray,non-aerosol 4 mg intranasal Q2M PRN (Reason: opioid overdose) Qty: 2 0RF Rx Instructions: spray 1 dose into ONE nostril; alternate nostrils w each dose until help arrives clonidine HCl 0.1 mg tablet 0.1 mg PO Q6H PRN (Reason: opiate reversal) 2 Days Qty: 8 0RF naloxone [Narcan] 4 mg/actuation spray,non-aerosol 4 mg intranasal Q2M PRN (Reason: opioid overdose) Qty: 2 0RF Rx Instructions: spray 1 dose into ONE nostril; alternate nostrils w each dose until help arrives lorazepam 1 mg tablet 1 mg PO BID PRN (Reason: anxiety) Qty: 14 0RF buprenorphine-naloxone [Suboxone] 2-0.5 mg film 1 film sublingual BID Qty: 10 0RF Referrals: Physician,None [Primary Care Provider] - Print Language: Greenlandic
[2023-10-15 10:51] VITALS: BP 121/74; PULSE 77; RESP 18; TEMP 36.8; O2SAT 98
== END 2023-10-15 10:51 | disposition home or self-care (01) ==
PROVIDERS: Emergency Provider Emergency Medicine
DX: K08.89 Other specified disorders of teeth and supporting structures (principal); F14.90 Cocaine use, unspecified, uncomplicated; F11.90 Opioid use, unspecified, uncomplicated
CPT/HCPCS: 99282

== ENCOUNTER 2023-10-15 19:25 | Emergency (ER) | payer MEDICAID, SELFPAY ==
[2023-10-15 19:39] VITALS: BP 99/69; PULSE 71; RESP 18; TEMP 36.6; O2SAT 98; BMI 18.1
--- NOTE | 2023-10-15 19:40 | ED_ITS ---
HPI - Dental/Oral General Chief complaint: Dental/Oral Stated complaint: dental pain Time Seen by Provider: 10/15/23 19:46 Source: patient Mode of arrival: ambulatory Limitations: no limitations History of Present Illness ED Provider: krista MCCOY Narrative: Patient is a 23-year-old male with history of opioid use disorder on suboxone presenting to the emergency department for second visit today complaining of dental pain to left upper jaw for one week. Patient was seen in this ED for same complaint this morning and discharged with prescription for chlorhexidine mouthwash. Has also been taking ibuprofen with little relief. Has not been taking Tylenol. Denies any worsening of or change in symptoms since this morning. Denies fevers, discharge/drainage, difficulty opening/closing jaw, or difficulty swallowing. States he received a lollicaine at earlier visit which was helpful. MD Complaint: tooth pain Location: Tooth # Teeth map: 2 1. patient identified area of pain Onset (ago): week(s) Duration: constant Severity: severe Relieving factors: nothing Exacerbating factors: chewing Treatment prior to arrival: oral analgesic Related Data Previous Rx's ?Medication ?Instructions ?Recorded naloxone 4 mg/actuation nasal 4 mg intranasal Q2M PRN opioid 03/08/22 spray (Narcan) overdose #2 ea buprenorphine 2 mg-naloxone 0.5 mg 1 film sublingual BID #10 ea 04/28/22 sublingual film (Suboxone) clonidine HCl 0.1 mg tablet 0.1 mg PO Q6H PRN opiate reversal 06/23/22 48 hours #8 tabs naloxone 4 mg/actuation nasal 4 mg intranasal Q2M PRN opioid 11/04/22 spray (Narcan) overdose #2 ea lorazepam 1 mg tablet 1 mg PO BID PRN anxiety #14 tabs 11/05/22 chlorhexidine gluconate 0.12 % 15 ml buccal DAILY #118 mL 10/15/23 mouthwash Allergies Allergy/AdvReac Type Severity Reaction Status Date / Time No Known Allergies Allergy Verified 10/15/23 19:41 Review of Systems 2 Review of Systems: Yes all other systems are reviewed and are negative Constitutional: Constitutional: Reports as per [facility] Past Medical History Medical History Anxiety No known health problems Social History Social History Alcohol intake: current Alcohol intake frequency: holidays/special occasions only Alcohol type: beer Substance Use Type: Crack/Cocaine and Heroin Advance Directives: No Advance Directives Information Provided: No Do you have a plan to hurt others: No Plan Physical Exam 2 Vital Signs: Vital Signs: Last Vital Signs Temp 97.9 F 10/15/23 19:55 Pulse 71 10/15/23 19:55 Resp 18 10/15/23 19:55 BP 99/69 10/15/23 19:55 Pulse Ox 98 10/15/23 19:55 O2 Del Method Room Air 10/15/23 19:55 BMI result Body Mass Index 18.1 Vital signs have been reviewed and appear to be correct. Blood pressure normal. Heart rate normal. Respiratory rate normal. Temperature normal. Oxygen saturation normal. Const: General: cooperative, healthy appearing and no acute distress O rientation/consciousness: oriented to person, oriented to place, oriented to time and patient oriented x3 Limitations: no limitations HEENT: Head: Yes normocephalic and Yes atraumatic Ears: external ears normal, TM's normal bilaterally, EAC's normal, mastoids normal bilaterally and no periauricular adenopathy General nose exam: Normal external nose present Face and sinus: Yes face symmetric Mouth: Normal oral and palatal mucosa present, lip normal, tongue normal, oropharynx normal, moist mucous membranes, no audible dysphonia, no drooling, no muffled voice, no trismus and No restricted motion Teeth and gingiva: gingiva normal, fair dentition and other (No tenderness to teeth 14-16, no erythema or edema to associated gingiva) T hroat: Yes uvula midline Eyes: Pupils: Equal, round and reactive pupils present Neck: Neck: Yes normal visual inspection and Yes supple Resp: Effort & Inspection: normal respiratory effort and able to speak in complete sentences Auscultation: clear to auscultation bilaterally Cardio: Rate: regular rate Rhythm: regular rhythm Heart sounds: S1 normal heart sound present and S2 normal heart sound present GI: Palpation (GI): Soft to palpation and nontender Auscultation: n ormoactive bowel sounds : General: Yes no CVA tenderness Back/Spine/Pelvis: Back: no CVA tenderness Skin: General skin exam: elasticity normal and turgor normal Neuro: General: oriented to person, oriented to place, oriented to time, patient oriented x3, moves all extremities, no focal motor deficits and CN's II- XI intact bilaterally Cranial nerves: Yes Equal, round and reactive pupils present Cognition (Neuro): normal cognition Extrem: General: Yes full ROM, Yes no pedal edema and Yes no calf tenderness Psych: Mental Status: mental status grossly normal Affect: normal affect Thought process: Normal thought process present Medical Decision Making Medical Decision Making [facility] Narrative: Patient is a 23-year-old male with history of opioid use disorder on suboxone presenting to the emergency department for second visit today complaining of dental pain to left upper jaw for one week. On exam patient is awake, A+Ox3, VS WNL, afebrile, normal neurological exam without focal deficits, physical exam findings as above. Given reported symptoms and physical exam findings, initial differential includes dental caries, no evidence of abscess. Do not suspect Yassine's angina. Discussed with patient alternating Tylenol and ibuprofen every 3 hours. Patient requesting additional lollicaine, so medicated with one in the ED. Advised patient to continue using the mouthwash prescribed this morning at earlier visit. Can also gargle with warm salt water. Again advised to call dental clinics in the am for an appointment. Return precautions discussed. Patient verbalized understanding of and agreement with plan. Differential Diagnosis Differential Diagnoses: The differential diagnosis associated with the presentation includes As per [facility] External Record Review External record reviewed: Inpatient record, Office record and Outpatient record Discharge Plan Discharge Clinical Impression: Toothache Patient Disposition: Home, Self-Care Instructions: Toothache (ED) Additional Instructions: You were evaluated in the emergency department today for complaint of dental pain. IT IS IMPORTANT THAT YOU FOLLOW UP WITH YOUR DENTIST. Continue to use the mouthwash prescribed to you this morning. We recommend that you take 600 mg of ibuprofen or 650 mg Tylenol every 6 hours as needed for pain. If necessary, you can alternate these medications every 3 hours. For example, at 9:00 a.m. take Tylenol, then at noon take ibuprofen, then at 3:00 p.m. take Tylenol, etc.. You can also gargle with warm salt water. Return to the emergency department if you develop worsening pain, swelling, difficulty swallowing, difficulty breathing, fever, or any other concerning symptoms. Call or visit any of the clinics below to establish care with a dentist: [facility] [address] [place] [address] [facility] [address] [facility], [address] [address] [place] [address] [facility] [address] [facility] [address] [place] [address] [facility] [address] [place] [address] [place] [address] [place] [address] Prescriptions: No Action naloxone [Narcan] 4 mg/actuation spray,non-aerosol 4 mg intranasal Q2M PRN (Reason: opioid overdose) Qty: 2 0RF Rx Instructions: spray 1 dose into ONE nostril; alternate nostrils w each dose until help arrives clonidine HCl 0.1 mg tablet 0.1 mg PO Q6H PRN (Reason: opiate reversal) 2 Days Qty: 8 0RF chlorhexidine gluconate 0.12 % mouthwash 15 ml buccal DAILY Qty: 118 0RF naloxone [Narcan] 4 mg/actuation spray,non-aerosol 4 mg intranasal Q2M PRN (Reason: opioid overdose) Qty: 2 0RF Rx Instructions: spray 1 dose into ONE nostril; alternate nostrils w each dose until help arrives lorazepam 1 mg tablet 1 mg PO BID PRN (Reason: anxiety) Qty: 14 0RF buprenorphine-naloxone [Suboxone] 2-0.5 mg film 1 film sublingual BID Qty: 10 0RF Interventions: ED Discharge Assessment Last Done: 10/15/23 19:55 Discharge Date/Time: 10/15/23 19:55 Print Language: Vietnamese
[2023-10-15 19:55] VITALS: BP 99/69; PULSE 71; RESP 18; TEMP 36.6; O2SAT 98
== END 2023-10-15 19:55 | disposition home or self-care (01) ==
PROVIDERS: Emergency Provider Emergency Medicine; PCP Internal Medicine
DX: K08.89 Other specified disorders of teeth and supporting structures (principal)
CPT/HCPCS: 99282

== ENCOUNTER 2023-11-15 00:42 | Emergency (ER) | payer MEDICAID, SELFPAY ==
[2023-11-15 00:47] VITALS: BP 149/100; PULSE 58; RESP 18; TEMP 36.8; O2SAT 100; BMI 17.6
--- NOTE | 2023-11-15 01:44 | ED_ITS ---
HPI - Dental/Oral General Chief complaint: Dental/Oral Stated complaint: tooth pain Time Seen by Provider: 11/15/23 01:23 Source: patient Mode of arrival: ambulatory Limitations: no limitations History of Present Illness ED Provider: DR. Christine HPI Narrative: 22-year-old male with history of opiate use disorder on Suboxone presenting for 3rd visit in the last month complaining of dental pain on the left side upper and lower molar tooth, patient was seen 2 weeks ago has scheduled an appointment with his dentist coming up next week, no fever, no chills, no facial swelling. Teeth map: 2 1. pain and tenderness 2. pain and tenderness Related Data Previous Rx's ?Medication ?Instructions ?Recorded naloxone 4 mg/actuation nasal 4 mg intranasal Q2M PRN opioid 03/08/22 spray (Narcan) overdose #2 ea buprenorphine 2 mg-naloxone 0.5 mg 1 film sublingual BID #10 ea 04/28/22 sublingual film (Suboxone) clonidine HCl 0.1 mg tablet 0.1 mg PO Q6H PRN opiate reversal 06/23/22 48 hours #8 tabs naloxone 4 mg/actuation nasal 4 mg intranasal Q2M PRN opioid 11/04/22 spray (Narcan) overdose #2 ea lorazepam 1 mg tablet 1 mg PO BID PRN anxiety #14 tabs 11/05/22 chlorhexidine gluconate 0.12 % 15 ml buccal DAILY #118 mL 10/15/23 mouthwash amoxicillin 500 mg-potassium 1 tab PO BID #14 tabs 11/15/23 clavulanate 125 mg tablet (Augmentin) Allergies Allergy/AdvReac Type Severity Reaction Status Date / Time No Known Allergies Allergy Verified 11/15/23 00:49 Review of Systems 2 Review of Systems: all other systems are reviewed and are negative Constitutional: Reports as per HPI and Reports no additional constitutional complaints Eyes: Reports as per HPI and Reports no additional eye complaints Reports system reviewed and no additional complaints, except as documented Cardiovascular: Reports as per HPI and Reports no additional cardiovascular complaints Respiratory: Reports as per HPI and Reports no additional respiratory complaints Gastrointestinal: Reports as per HPI and Reports no additional gastrointestinal complaints Genitourinary: Reports no additional female genitourinary complaints Musculoskeletal: Reports no additional musculoskeletal complaints Skin/Breast: Reports system reviewed and no additional complaints, except as docu Psychiatric: Reports no additional psychiatric complaints Endocrine: Reports no additional endocrine complaints Hematologic/Lymphatic: Reports no additional hematologic/lymphatic complaints Allergic/Immunologic: Reports no additional allergic/immunologic complaints Reports system reviewed and no additional complaints, except as documented and Reports Abnormal speech present [facility] Past Medical History Medical History Anxiety No known health problems Social History Social History Alcohol intake: current Alcohol intake frequency: holidays/special occasions only Alcohol type: beer Substance Use Type: Crack/Cocaine and Heroin Advance Directives: No Advance Directives Information Provided: No Do you have a plan to hurt others: No Plan Physical Exam 2 Vital Signs: Vital Signs: Last Vital Signs Temp 98.2 F 11/15/23 00:47 Pulse 58 11/15/23 00:47 Resp 18 11/15/23 00:47 BP 149/100 H 11/15/23 00:47 Pulse Ox 100 11/15/23 00:47 O2 Del Method Room Air 11/15/23 00:47 BMI result Body Mass Index 17.6 Vital signs have been reviewed and appear to be correct. Blood pressure elevated. Heart rate normal. Respiratory rate normal. Temperature normal. Oxygen saturation normal. Appearance: Alert. Oriented X3. No acute distress. Head: Normal external exam. Normocephalic. Atraumatic. No Nielsen signs noted. No raccoon eyes noted Eyes: PERRLA. EOMI. Conjunctiva and sclera normal. Eyelids normal. ENT: TM's Normal. Pharynx normal. Uvula midline. Moist mucous membranes. No trismus noted. No drooling noted. No muffled voice noted. Neck: Normal inspection. Neck supple. FROM. No adenopathy. Thyroid Normal. No meningeal signs. No neck mass noted. CVS: Normal heart rate and rhythm. Heart sound normal. No murmurs noted. Pulses normal throughout. Respiratory: No respiratory distress. Painless inspiration. Breath sounds normal. No wheezes/rales/rhonchi noted. Chest nontender. No accessory muscle usage noted or decreased air movement noted. Abdomen: Soft and nontender. Bowel sounds normal in all 4 quadrants. No distention noted. No organomegaly noted. No visible injury noted. Back: No CVA tenderness. Full range of motion noted. Skin: Skin warm and dry. Normal skin color. Normal skin turgor. No rashes/lesions/lacerations noted. Extremities: No lower extremity edema. Extremities exhibit normal range of motion. Extremities nontender. Neuro: Oriented X 3. Cranial nerve exam: II-XII are grossly intact No motor deficit. No sensory deficit. Reflexes normal. Course Reevaluation(s) Reevaluation #1: dental pain scheduled to have an appointment with his dentist next week start the patient on Augmentin and lidocaine viscous. Time: 01:50 Medical Decision Making Differential Diagnosis Differential Diagnoses: The differential diagnosis associated with the presentation includes ( dental pain, dental infection, dental abscess.) Admission/Observation Consideration of admission/observation: Escalation of care including admission/observation considered Discharge Plan Discharge Clinical Impression: Toothache Patient Disposition: Home, Self-Care Instructions: Toothache (ED) Additional Instructions: follow-up with your dentist as instructed. Prescriptions: New amoxicillin-pot clavulanate [Augmentin] 500-125 mg tablet 1 tab PO BID Qty: 14 0RF No Action naloxone [Narcan] 4 mg/actuation spray,non-aerosol 4 mg intranasal Q2M PRN (Reason: opioid overdose) Qty: 2 0RF Rx Instructions: spray 1 dose into ONE nostril; alternate nostrils w each dose until help arrives clonidine HCl 0.1 mg tablet 0.1 mg PO Q6H PRN (Reason: opiate reversal) 2 Days Qty: 8 0RF chlorhexidine gluconate 0.12 % mouthwash 15 ml buccal DAILY Qty: 118 0RF naloxone [Narcan] 4 mg/actuation spray,non-aerosol 4 mg intranasal Q2M PRN (Reason: opioid overdose) Qty: 2 0RF Rx Instructions: spray 1 dose into ONE nostril; alternate nostrils w each dose until help arrives lorazepam 1 mg tablet 1 mg PO BID PRN (Reason: anxiety) Qty: 14 0RF buprenorphine-naloxone [Suboxone] 2-0.5 mg film 1 film sublingual BID Qty: 10 0RF Referrals: Stacy Ac MD [Primary Care Provider] - Print Language: Dominican
[2023-11-15] MEDS: Lidocaine HCl Viscous 2 % 15 ML SOLUTION MUCOUS MEM (01:58)
[2023-11-15] MEDS: Amoxicillin/Potassium Clav 500 MG TABLET PO (01:58)
[2023-11-15 02:00] VITALS: BP 149/100; PULSE 58; RESP 18; TEMP 36.8; O2SAT 100
== END 2023-11-15 02:11 | disposition home or self-care (01) ==
PROVIDERS: Emergency Provider Emergency Medicine; PCP Internal Medicine
DX: K08.89 Other specified disorders of teeth and supporting structures (principal)
CPT/HCPCS: 99283; 99284